=== PATIENT | female | born 1955 | race Caucasian/White ===

== ENCOUNTER → 2017-09-08 09:52 | Outpatient (CLI) | payer MEDICARE, MEDICAID, SELFPAY ==
--- NOTE | 2017-09-08 10:01 | US_ITS ---
US Arterial Ankle Brachial Ind History: This is relatively claudication, peripheral vascular disease, ORDERING PHYSICIAN: Carolyn Granda PATIENT AGE: 62 years TECHNIQUE: Segmental pressures obtained of both right and left leg. These are compared to brachial blood pressure to yield index at each level sampled including summary CONNOR. The data sheets from the procedure are available in PACS FINDINGS Rest study only performed today No prior studies available for comparison. Blood pressures reported are in millimeters mercury. RIGHT LEG CONNOR = .8. RIGHT LEG TBI=.5 Brachial BP: 150 Thigh BP: 132 Calf BP: 126 Ankle PT: 121 Ankle DP : 124 Digit =76 LEFT LEG CONNOR = 1.0 LEFT LEG TBI= .5 Brachial BPD: 140 Thigh BP: 146 Calf BP: 148 Ankle PT:152 Ankle DP: 152 Digit = 81 Pulses and waveforms: Normal waveforms. Normal pulses with the exception of the left dorsalis pedis which was diminished. IMPRESSION: 1. Slightly low right CONNOR suggesting mild reversal vascular disease. 2. Low bilateral TBI suggesting small vessel disease.
== END ==
PROVIDERS: Family Provider Internal Medicine Adolescent Medicine; PCP Internal Medicine Adolescent Medicine; Visit Provider Nurse Practitioner Family
DX: I70.213 Atherosclerosis of native arteries of extremities with intermittent claudication, bilateral legs (principal)
CPT/HCPCS: 93922

== ENCOUNTER → 2018-05-15 09:49 | Outpatient (CLI) | payer MEDICARE, MEDICAID, SELFPAY ==
--- NOTE | 2018-05-15 10:04 | XR_ITS ---
XR chest 2V HISTORY: ITS.REASON: COPD, COUGH, TOBACCO USE, DYSPNEA ORDERING PHYSICIAN: Carolyn Granda PATIENT AGE: 63 years COMPARISON: 11/15/2016 FINDINGS: The cardiomediastinal silhouette and pulmonary vascularity are within normal limits. Changes of COPD and old granulomatous disease. No lobar consolidation or collapse with no significant change. IMPRESSION: COPD, no change with no acute finding
== END ==
PROVIDERS: PCP Internal Medicine Adolescent Medicine; Visit Provider Nurse Practitioner Family
DX: R06.09 Other forms of dyspnea (principal); J44.1 Chronic obstructive pulmonary disease with (acute) exacerbation; R05 Cough; Z72.0 Tobacco use
CPT/HCPCS: 71046

== ENCOUNTER → 2018-06-03 10:17 | Outpatient (CLI) | payer MEDICARE, MEDICAID, SELFPAY ==
--- NOTE | 2018-06-03 10:25 | CT_ITS ---
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 Sagittal, and coronal reformatted images are also generated and reviewed. All CT scans at the facility use one or more dose reduction, viz: automated exposure control, ma/kV adjustment per patient size (including targeted exams where dose is matched to indication, i.e. head), or iterative reconstruction technique. FINDINGS: Mild atheromatous plaque is present within the aortic arch and descending thoracic aorta. No aneurysm or dissection is evident. There are coronary artery calcifications. Working diagnosis is right subclavian artery stenosis. There is a mild degree of artifact and contrast injected into the left upper extremity. Mild atheromatous changes are present in the right brachiocephalic artery but no significant stenosis. The right subclavian and right axillary artery and proximal brachial artery on the right is unremarkable. A faint curvilinear lucency is noted in the brachiocephalic artery on the right however, this is felt to be due to artifact from the overlying contrast in the brachiocephalic vein. Mild stenosis involves the left subclavian artery just proximal to the vertebral origin. The stenosis is less than 50%. The left subclavian and axillary and proximal brachial artery have an unremarkable appearance. The common carotids are unremarkable. Small amount of calcific plaque is present in the left carotid bulb with 25-30% stenosis. There are centrilobular emphysematous changes and COPD changes. IMPRESSION: 1. There are mild atheromatous changes noted as described above in the aorta and great vessels but no significant stenotic lesions evident. 2. COPD/centrilobular emphysema
== END ==
PROVIDERS: PCP Nurse Practitioner Family; Visit Provider Internal Medicine Adolescent Medicine
DX: R09.89 Other specified symptoms and signs involving the circulatory and respiratory systems (principal); G45.8 Other transient cerebral ischemic attacks and related syndromes
CPT/HCPCS: 71275

== ENCOUNTER → 2019-10-20 07:49 | Outpatient (CLI) | payer MEDICARE, OTHER, SELFPAY ==
--- NOTE | 2019-10-20 07:53 | CT_ITS ---
PROCEDURE: CT LUNG SCREENING CLINICAL INDICATION: H/O TOBACCO DEPENDENCE 40 pack year smoking history. COMPARISON: CHW CT CHEST W/ CONTRAST from 12/02/[address] angio chest from 06/03/2018 TECHNIQUE: The exam was performed on a [employer] A/S Light Speed [address] scanner using 2.90 mGy CTDI. A low dose helical CT CHEST was performed on a multi-detector scanner. All CT scans at the facility use one or more dose reduction, viz: automated exposure control, ma/kV adjustment per patient size (including targeted exams where dose is matched to indication, i.e. head), or iterative reconstruction technique. The LDCT was performed in a facility that meets the criteria for the screening program. Data regarding this exam was submitted to ACR which is an approved registry. The order for this exam indicates that it came as a result of a lung cancer screening counseling shard decision-making visit that included all the elements required of such a visit including smoking cessation. The radiologist interpreting this exam meets the CMS criteria for the LDCT lung cancer screening program. The exam is reported using the Lung-RADS classification scale and reported to the ACR registry. NOTE: This study was performed for the specific purposes of lung cancer screening and is not an alternative to diagnostic chest CT. RADIATION DOSE: CTDI vol(CT dose Index-volume) = 2.90mG DLP (Dose Length Product) = 104.20 mGcm Lung Rads Category: FINDINGS: COPD with centrilobular emphysema and scattered areas of scarring. 6 mm noncalcified nodule right upper lobe slightly more prominent. 4 mm fissural nodule in the right middle lobe. OTHER FINDINGS: Coronary artery calcification. Old granulomatous disease. Stable left adrenal nodule IMPRESSION: Lung rads category 3, probably benign. Recommend six-month diagnostic CT follow-up regarding 6 mm nodule right upper lobe slightly more prominent possibly due to technique Dictated by: Quinton Huang MD 10/31/2019 09:03 Electronically signed by Quinton Huang MD in [place] 10/31/2019 09:03
== END ==
PROVIDERS: PCP Nurse Practitioner Family; Visit Provider Nurse Practitioner Family
DX: Z87.891 Personal history of nicotine dependence (principal); Z12.2 Encounter for screening for malignant neoplasm of respiratory organs

== ENCOUNTER → 2020-10-27 09:12 | Outpatient (CLI) | payer MEDICARE, OTHER, SELFPAY ==
[2020-10-27 09:53] LABS: Blood Urea Nitrogen 8 mg/dl (7-17); Estimated Glomerular Filt Rate 83 ml/min (>60); GFR (African American) 101 ML/MIN (>60)
--- NOTE | 2020-10-27 13:46 | CT_ITS ---
PROCEDURE: CT CHEST W CON CLINCAL INDICATION: ABN CT CHEST SCAN Follow-up abnormal screening chest CT COMPARISON: CT CHW CT CHEST W/ CONTRAST from 12/02/[address] LUNG SCREENING from 10/20/2019 TECHNIQUE: IV Contrast: 75ml Isovue 370 Axial images obtained with sagittal and coronal reformats. All CT scans at the facility use one or more dose reduction, viz: automated exposure control, ma/kV adjustment per patient size (including targeted exams where dose is matched to indication, i.e. head), or iterative reconstruction technique. FINDINGS: HEART AND MEDIASTINAL STRUCTURES: No mediastinal or hilar mass or adenopathy. No evidence of aortic aneurysm or dissection. No central pulmonary embolus. Coronary artery calcifications are present. LUNGS AND PLEURAL SPACES: COPD changes no change flat like 6 mm nodule in the right upper lobe. No change small fissural nodule right minor fissure. Calcified granuloma right lower lobe. No new nodules apparent. No effusions or infiltrates. Small area of atelectasis versus fibrosis in the left lower lobe medially slightly more prominent. BONY STRUCTURES: No acute bony abnormalities apparent. UPPER ABDOMEN: Nodularity of the left adrenal gland is unchanged ADDITIONAL FINDINGS: No other significant abnormalities. IMPRESSION: No change in the right upper lobe nodule. There is some minimal atelectatic or fibrotic changes in the left lung base medially which appears slightly more prominent COPD Dictated by: Quinton Huang MD 10/27/2020 15:05 Quinton Huang MD in [place] 10/27/2020 15:05
== END ==
PROVIDERS: PCP Nurse Practitioner Family; Visit Provider Nurse Practitioner Family
DX: R93.89 Abnormal findings on diagnostic imaging of other specified body structures (principal)
CPT/HCPCS: 36415; 71260; 82565; 84520; Q9967

== ENCOUNTER → 2021-01-29 12:48 | Outpatient (CLI) | payer MEDICARE, OTHER, MEDICAID, SELFPAY ==
--- NOTE | 2021-01-29 12:52 | CA_ITS ---
APPROVED REPORT [employer] Press Operator: AMILCAR Laterality: Bilateral Study Quality: Good Indications: DIZZINESS,HLP Doppler Spectral Velocity Analysis dICA (R) 92.90/18.00 cm/s dICA (L) 76.20/15.70 cm/s Hipolito (R) 94.80/12.60 cm/s Hipolito (L) 93.90/20.00 cm/s pICA (R) 79.00/16.60 cm/s pICA (L) 135.30/27.60 cm/s dCCA (R) 85.30/24.70 cm/s dCCA (L) 80.20/16.30 cm/s pCCA (R) 106.60/20.90 cm/s pCCA (L) 79.10/20.50 cm/s Vert (R) 34.30/6.00 cm/s Vert (L) 39.10/9.80 cm/s ICA/CCA 1.10 ICA/CCA 1.70 Findings Duplex evaluation demonstrates stenosis of the right proximal internal carotid artery <20% with PSV <140 cm/sec, EDV <100 cm/sec, and IC/CC Ratio <4.0.Duplex evaluation demonstrates stenosis of the left proximal internal carotid artery <20% with PSV <140 cm/sec, EDV <100 cm/sec, and IC/CC Ratio <4.0. Antegrade flow seen bilateral vertebral arteries. Conclusion Duplex evaluation demonstrates stenosis of the right proximal internal carotid artery <20% with PSV <140 cm/sec, EDV <100 cm/sec, and IC/CC Ratio <4.0.Duplex evaluation demonstrates stenosis of the left proximal internal carotid artery <20% with PSV <140 cm/sec, EDV <100 cm/sec, and IC/CC Ratio <4.0. Antegrade flow seen bilateral vertebral arteries. Electronically signed by : Quinton Huang MD 01/30/2021 09:29:29
== END ==
PROVIDERS: PCP Nurse Practitioner Family; Visit Provider Nurse Practitioner Family
DX: R42 Dizziness and giddiness (principal)
CPT/HCPCS: 93880

== ENCOUNTER → 2021-05-21 11:37 | Outpatient (CLI) | payer MEDICARE, OTHER, MEDICAID, SELFPAY ==
[2021-05-21 12:14] LABS: Basophils # 0.1 K/mm3 (0-0.2); Basophils % 1.1 % (0.1-2.0); Eosinophils # 0.2 K/mm3 (0.0-0.4); Eosinophils % 2.8 % (0.1-12.0); Hematocrit 44.9 % (37.0-47.0); Hemoglobin 15.1 g/dL (12.2-16.2); Lymphocytes # 2.3 K/mm3 (0.7-4.5); Lymphocytes % 34.8 % (10-50); Mean Corpuscular HGB Conc 33.6 g/dL (31.8-35.4); Mean Corpuscular Hemoglobin 31.9 pg (27.0-31.2); Mean Platelet Volume 7.7 fl (7.4-10.4); Monocytes # 0.3 K/mm3 (0.1-1.0); Monocytes % 4.4 % (1.7-9.3); Neutrophils # 3.8 K/mm3 (1.8-7.8); Neutrophils % 56.9 % (37.0-80.0); Platelet Count 301 K/mm3 (142-424); Red Blood Count 4.73 M/mm3 (4.20-5.40); Red Cell Distribution Width 12.9 % (11.5-17.5); White Blood Count 6.7 K/mm3 (4.8-10.8)
[2021-05-21 12:54] LABS: Hemoglobin A1C 6.2 % (4.0-6.0)
[2021-05-21 13:01] LABS: 25-OH Vitamin D, Total 69.6 ng/mL (30-100)
[2021-05-21 13:23] LABS: Alanine Aminotransferase 15 U/L (12-78); Albumin Level 4.7 g/dl (3.5-5.0); Albumin/Globulin Ratio 1.7 (1.1-1.8); Alkaline Phosphatase 80 U/L (38-126); Anion Gap 11.7 mEq/L (5-15); Aspartate Amino Transferase 22 U/L (14-36); Bilirubin,Total 0.5 mg/dl (0.2-1.3); Blood Urea Nitrogen 13 mg/dl (7-17); Carbon Dioxide 28 mmol/L (22.0-30.0); Chloride 106 mmol/L (98-107); Chol/HDL Ratio 2.7 (1-3.5); Cholesterol 168 mg/dl (140-200); Estimated Glomerular Filt Rate 83 ml/min (>60); GFR (African American) 101 ML/MIN (>60); Globulin 2.7 g/dL (1.3-3.2); Glucose 100 mg/dl (74-100); HDL Cholesterol 63 mg/dl (40-60); Potassium 4.7 mmoL/L (3.5-5.1); Sodium 141 mmol/L (136-145); Total Protein,Serum 7.4 g/dl (6.3-8.2); Triglycerides 182 mg/dl (30-150); VLDL Cholesterol 36 mg/dL (0-40)
[2021-05-21 13:34] LABS: Direct LDL Cholesterol 68.04 mg/dL (100-129)
[2021-05-21 14:12] LABS: Vitamin B12 297 pg/mL (239-931)
== END ==
PROVIDERS: PCP Nurse Practitioner Family; Visit Provider Nurse Practitioner Family
DX: I10 Essential (primary) hypertension (principal); E78.5 Hyperlipidemia, unspecified; E53.8 Deficiency of other specified B group vitamins; E55.9 Vitamin D deficiency, unspecified; R73.09 Other abnormal glucose
CPT/HCPCS: 36415; 80053; 80061; 82306; 82607; 83036; 85025

== ENCOUNTER → 2022-01-21 08:44 | Outpatient (CLI) | payer MEDICARE, OTHER, SELFPAY ==
[2022-01-21 10:15] LABS: Basophils # 0.1 K/mm3 (0-0.2); Eosinophils # 0.2 K/mm3 (0.0-0.4); Eosinophils % 2.5 % (0.1-12.0); Hemoglobin 15.4 g/dL (12.2-16.2); Lymphocytes # 1.8 K/mm3 (0.7-4.5); Lymphocytes % 24.8 % (10-50); Mean Corpuscular HGB Conc 32.1 g/dL (31.8-35.4); Mean Corpuscular Hemoglobin 30.7 pg (27.0-31.2); Mean Corpuscular Volume 95.5 fl (81-99); Mean Platelet Volume 7.7 fl (7.4-10.4); Monocytes # 0.4 K/mm3 (0.1-1.0); Neutrophils # 4.8 K/mm3 (1.8-7.8); Neutrophils % 65.8 % (37.0-80.0); Platelet Count 289 K/mm3 (142-424); Red Blood Count 5.03 M/mm3 (4.20-5.40); Red Cell Distribution Width 13.2 % (11.5-17.5); White Blood Count 7.3 K/mm3 (4.8-10.8)
[2022-01-21 11:24] LABS: Alanine Aminotransferase 14 U/L (12-78); Albumin Level 4.5 g/dl (3.5-5.0); Albumin/Globulin Ratio 1.7 (1.1-1.8); Alkaline Phosphatase 102 U/L (38-126); Anion Gap 13.4 mEq/L (5-15); Aspartate Amino Transferase 19 U/L (14-36); Bilirubin,Total 0.3 mg/dl (0.2-1.3); Blood Urea Nitrogen 14 mg/dl (7-17); Calcium 10.1 mg/dl (8.4-10.2); Carbon Dioxide 28 mmol/L (22.0-30.0); Chloride 105 mmol/L (98-107); Chol/HDL Ratio 2.5 (1-3.5); Cholesterol 163 mg/dl (140-200); Estimated Glomerular Filt Rate 99 ml/min (>60); GFR (African American) 120 ML/MIN (>60); Globulin 2.7 g/dL (1.3-3.2); Glucose 120 mg/dl (74-100); HDL Cholesterol 64 mg/dl (40-60); Potassium 4.4 mmoL/L (3.5-5.1); Sodium 142 mmol/L (136-145); Total Protein,Serum 7.2 g/dl (6.3-8.2); Triglycerides 138 mg/dl (30-150); VLDL Cholesterol 28 mg/dL (0-40)
[2022-01-21 11:35] LABS: Direct LDL Cholesterol 64.46 mg/dL (100-129)
== END ==
PROVIDERS: PCP Nurse Practitioner Family; Visit Provider Nurse Practitioner Family
DX: I10 Essential (primary) hypertension (principal); E78.5 Hyperlipidemia, unspecified; M53.9 Dorsopathy, unspecified
CPT/HCPCS: 36415; 80053; 80061; 85025

== ENCOUNTER → 2022-08-19 09:59 | Outpatient (POV) | payer MEDICARE, MEDICAID, SELFPAY ==
[2022-08-19 10:35] VITALS: BP 162/60; PULSE 79; RESP 18; O2SAT 98; BMI 24.6
--- NOTE | 2022-08-19 12:03 | EXP.PAIN.OV ---
HPI Data of Consult Patient: new to practice Consult date: 08/19/22 Requesting Physician: Nayla Saeed APRN Primary Care Provider: Carolyn Granda APRN Consult Narrative Reason for consult: Low back pain History of present illness: Ms. Almodovar is a 67 year old female who presents today as a new patient. She is a referral from Carolyn Granda's office. Today she rates her pain at an 8 out of 10. Patient states her pain is all in her low back and has been going on for years. She does describe this as a aching sensation that is worse with increased activity. Patient cannot tolerate activities such as bending, lifting or twisting movements due to her worsening pain. Patient does state the pain interferes with her ability to perform activities of daily living such as cooking and cleaning. Patient has tried umvo-qfo-nzqqmdv medicine such as Tylenol and ibuprofen with minimal improvement. Patient has also tried heat and iuaa-ien-tbhrwsm creams with minimal relief. Patient is currently managed with gabapentin 400 mg 3 times a day and hydrocodone/ibuprofen 7.5 mg / 200 mg 3 times a day from her primary care doctor. Patient denies any side effects from this medication. She states it does help some of her symptoms. 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 Patient denies any history of surgery. She does state that she had an injection years ago that did provide significant relief from what she can remember. She has not had any updated imaging. Patient has had physical therapy that caused worsening of her pain symptoms. She does continue to do at home exercising and stretching as well as she can based off of her pain symptoms. She does state occasionally with certain movements she will have random shooting pains into her left leg however she states this only rarely occurs. Her Akash is [phone]. Its been reviewed and appropriate. CC: Nayla Saeed APRN [facility] Disclaimer: The information contained in this section may have been updated after the patient was seen, as this information can be updated by other users. Medical History (Updated 08/19/22 @ 12:07 by Nayla Saeed APRN) Abdominal hernia Bladder cancer Carotid artery stenosis COPD (chronic obstructive pulmonary disease) Depression Diabetes GERD (gastroesophageal reflux disease) HLD (hyperlipidemia) TIA (transient ischemic attack) Surgical History (Updated 08/19/22 @ 10:10 by Rianna Henderson RN) H/O tubal ligation Family History (Updated 08/19/22 @ 10:09 by Rianna Henderson RN) Other Cirrhosis Diabetes Hyperlipidemia Hypertension Pancreatic cancer Social History (Updated 08/19/22 @ 10:12 by Rianna Henderson, JANAE) Smoking Status: Current every day smoker alcohol intake: never current occupational status: retired Travel in the last 8 weeks: None Review of Systems Review of Systems Review of systems:: pertinent systems reviewed and negative unless documented below Review of systems (narrative): Review of Systems: General: No recent weight changes, no fever, no sleep disturbances Respiratory: No cough, no shortness of air, no recurring pulmonary infections Cardiovascular/peripheral vascular: No chest pain, no palpitations, no edema, no shortness of breath Gastrointestinal: No new onset incontinence, normal bowel movements reported Genitourinary: No new onset incontinence Musculoskeletal: Low back pain Psychiatric: [Normal mood/affect] Neurological: [Denies weakness in extremities], [denies balance issues] Meds Home Medications and Allergies Home Medications Medication Instructions Recorded Confirmed Type amlodipine 10 mg tablet 10 mg PO DAILY BLOOD PRESSURE 08/19/22 08/19/22 History budesonide 160 mcg-glycopyr 9 2 inh inhalation BID Breathing 08/19/22 08/19/22 History mcg-formot 4.8 mcg/actuation HFA problems inh
== END ==
PROVIDERS: PCP Nurse Practitioner Family; Visit Provider Nurse Practitioner Family
DX: M51.36 Other intervertebral disc degeneration, lumbar region (principal); M47.816 Spondylosis without myelopathy or radiculopathy, lumbar region
CPT/HCPCS: 99202; G0463

== ENCOUNTER → 2022-08-19 10:59 | Outpatient (CLI) | payer MEDICARE, MEDICAID, SELFPAY ==
[2022-08-19 11:57] LABS: Basophils # 0.1 K/mm3 (0-0.2); Basophils % 0.6 % (0.1-2.0); Eosinophils # 0.2 K/mm3 (0.0-0.4); Eosinophils % 2.8 % (0.1-12.0); Hemoglobin 15.1 g/dL (12.2-16.2); Lymphocytes # 2.3 K/mm3 (0.7-4.5); Lymphocytes % 30.8 % (10-50); Mean Corpuscular HGB Conc 32.7 g/dL (31.8-35.4); Mean Corpuscular Hemoglobin 31.1 pg (27.0-31.2); Mean Corpuscular Volume 94.9 fl (81-99); Mean Platelet Volume 7.3 fl (7.4-10.4); Monocytes # 0.4 K/mm3 (0.1-1.0); Monocytes % 5.6 % (1.7-9.3); Neutrophils # 4.5 K/mm3 (1.8-7.8); Neutrophils % 60.2 % (37.0-80.0); Platelet Count 331 K/mm3 (142-424); Red Blood Count 4.85 M/mm3 (4.20-5.40); Red Cell Distribution Width 12.8 % (11.5-17.5); White Blood Count 7.5 K/mm3 (4.8-10.8)
[2022-08-19 12:22] LABS: Chloride 106 mmol/L (98-107); Potassium 4.8 mmoL/L (3.5-5.1); Sodium 140 mmol/L (136-145)
[2022-08-19 12:24] LABS: Alanine Aminotransferase 13 U/L (12-78); Alkaline Phosphatase 88 U/L (38-126); Aspartate Amino Transferase 18 U/L (14-36); Bilirubin,Total 0.4 mg/dl (0.2-1.3); Blood Urea Nitrogen 10 mg/dl (7-17); Estimated Glomerular Filt Rate 71 ml/min (>60); GFR (African American) 86 ML/MIN (>60)
[2022-08-19 12:25] LABS: Albumin Level 4.6 g/dl (3.5-5.0); Albumin/Globulin Ratio 1.8 (1.1-1.8); Anion Gap 11.8 mEq/L (5-15); Calcium 10.3 mg/dl (8.4-10.2); Carbon Dioxide 27 mmol/L (22.0-30.0); Chol/HDL Ratio 2.4 (1-3.5); Cholesterol 159 mg/dl (140-200); Globulin 2.6 g/dL (1.3-3.2); Glucose 109 mg/dl (74-100); HDL Cholesterol 65 mg/dl (40-60); Total Protein,Serum 7.2 g/dl (6.3-8.2); Triglycerides 224 mg/dl (30-150); VLDL Cholesterol 45 mg/dL (0-40)
[2022-08-19 12:41] LABS: 25-OH Vitamin D, Total 52.6 ng/mL (30-100)
[2022-08-19 12:53] LABS: Hemoglobin A1C 6.1 % (4.0-6.0)
[2022-08-19 13:13] LABS: Vitamin B12 342 pg/mL (239-931)
== END ==
PROVIDERS: PCP Nurse Practitioner Family; Visit Provider Nurse Practitioner Family
DX: E11.9 Type 2 diabetes mellitus without complications (principal); E78.5 Hyperlipidemia, unspecified; E55.9 Vitamin D deficiency, unspecified; E53.8 Deficiency of other specified B group vitamins
CPT/HCPCS: 36415; 80053; 80061; 82306; 82607; 83036; 85025; 99202; G0463

== ENCOUNTER 2022-08-27 09:48 | Day surgery (SDC) | payer MEDICARE, OTHER, SELFPAY ==
[2022-08-27 10:12] VITALS: BP 170/75; PULSE 93; RESP 18; TEMP 36.5; O2SAT 95; BMI 23.8
[2022-08-27 10:24] VITALS: BP 160/80; PULSE 88; RESP 18; O2SAT 97
[2022-08-27 10:26] VITALS: BP 160/80; PULSE 88; RESP 18; O2SAT 97
[2022-08-27 10:30] VITALS: BP 160/74; PULSE 84; RESP 18; O2SAT 95
--- NOTE | 2022-08-27 10:31 | P.PCN_ITS ---
Procedure Date: 08/27/22 Time: 10:00 Anesthesiologist:: Lucho Kuhn CRNA Complications:: None Pre-procedure Diagnosis:: Degenerative disc disease lumbar spine multilevels. Lumbar radiculopathy. Lumbar spondylosis. Multilevel lumbar facet arthropathy Post-procedure Diagnosis:: Same Indications for Procedure:: Patient is a very pleasant 67-year-old female comes our clinic today for lumbar medial branch block L4-5, L5-S1 bilaterally. Patient complains of low back pain when standing and or sitting for any length of time. She rates her pain 7/10. Patient does have some radicular symptoms into the bilateral hips. Procedure Details:: Informed consent was obtained and the risk and benefits of the procedure was explained to the patient. Patient was taken to the procedure room where noninvasive monitors were placed, including noninvasive blood pressure cuff as well as pulse oximeter. The area over the lumbar spine was cleansed using chlorhexidine as a cleansing solution. I anesthetized the skin and subcutaneous tissues with 1% Lidocaine. I placed 22-gauge spinal needles into the facet joint/ medial branches of L4-L5, and L5-S1] bilaterally. Needle placement was confirmed with fluoroscopy. After confirmation of needle placement, each site was injected with 1 mL of 1% lidocaine and 0.25 % Marcaine and 10 mg of Depo- Medrol. A total of 80 mg of depo medrol was used for bilateral medial branch blocks of L4-L5, and L5-S1] bilaterally. Patient tolerated the procedure without difficulty. There were no complications. Plan and Disposition:: Patient was discharged without incident.
== END 2022-08-27 10:30 | disposition home or self-care (01) ==
PROVIDERS: PCP Nurse Practitioner Family; Visit Provider Nurse Anesthetist, Certified Registered
DX: M51.16 Intervertebral disc disorders with radiculopathy, lumbar region (principal); M47.896 Other spondylosis, lumbar region
CPT/HCPCS: 64493; 64494; J1040

== ENCOUNTER → 2022-09-11 10:45 | Outpatient (POV) | payer MEDICARE, OTHER, SELFPAY ==
--- NOTE | 2022-09-11 11:11 | A.OFFVIS_ITS ---
[facility] Pain Management SOAP Note Subjective:: Patient is a pleasant 67-year-old female who presents today for follow-up of lumbar medial branch block L4-L5, L5-S1 bilaterally on 08/27/2022. We are currently treating the patient for degenerative disc disease of lumbar spine with lumbar radiculopathy symptoms, lumbar facet arthropathy, lumbar spondylosis. Today she rates her pain a 1 out of 10. She states she has had at least 70% improvement following this injection and feels like it is still continuing to provide additional relief. She states she has been able to increase her activity with decreased pain symptoms. At her last visit she was also prescribed compounding cream that she states does help significantly. She does state that Dr. Olmstead's office did recently prescribe her tramadol 50 mg 3 times daily due to having issues with refilling her [place]. Her Akash is [phone]. Its been reviewed and appropriate. Review of Systems: General: No recent weight changes, no fever, no sleep disturbances Respiratory: No cough, no shortness of air, no recurring pulmonary infections Cardiovascular/peripheral vascular: No chest pain, no palpitations, no edema, no shortness of breath Gastrointestinal: No new onset incontinence, normal bowel movements reported Genitourinary: No new onset incontinence Musculoskeletal: Low back pain Psychiatric: [Normal mood/affect] Neurological: [Denies weakness in extremities], [denies balance issues] Objective:: Physical Exam: General: Alert and oriented x3, no acute distress, pleasant and cooperative Lungs: Respirations even and unlabored, symmetrical chest expansion Eyes: PERRL Musculoskeletal: Flexion and extension of lumbar [spine] somewhat guarded secondary to pain, [antalgic gait noted] Neurological: Speech clear, no gross sensory deficit Assessment:: Degenerative disc disease of lumbar spine with lumbar radiculopathy symptoms, lumbar facet arthropathy, lumbar spondylosis Plan:: Patient has had significant improvement of her pain symptoms following her lumbar medial block and does not require any additional injective therapy at this time. Patient will return to clinic in 1 month for reevaluation of symptoms and plan of care. Patient has been instructed to contact the clinic with any concerns before the next appointment. Dr. Jang has reviewed this note and agrees with this plan of care. This note was dictated using voice recognition software and make contain errors or omissions. [facility] Disclaimer: The information contained in this section may have been updated after the patient was seen, as this information can be updated by other users. Medical History Abdominal hernia Bladder cancer Carotid artery stenosis COPD (chronic obstructive pulmonary disease) Depression Diabetes GERD (gastroesophageal reflux disease) HLD (hyperlipidemia) TIA (transient ischemic attack) Surgical History H/O tubal ligation Family History Other Cirrhosis Diabetes Hyperlipidemia Hypertension Pancreatic cancer Social History Smoking Status: Current every day smoker alcohol intake: never current occupational status: retired Travel in the last 8 weeks: None
[2022-09-11 11:39] VITALS: BP 145/67; PULSE 82; RESP 18; O2SAT 97; BMI 23.8
== END ==
PROVIDERS: PCP Nurse Practitioner Family; Visit Provider Nurse Practitioner Family
DX: M51.16 Intervertebral disc disorders with radiculopathy, lumbar region (principal); M47.26 Other spondylosis with radiculopathy, lumbar region
CPT/HCPCS: 99212; G0463

== ENCOUNTER → 2022-11-04 11:41 | Outpatient (POV) | payer MEDICARE, OTHER, SELFPAY ==
[2022-11-04 11:49] VITALS: BP 142/69; PULSE 72; RESP 18; O2SAT 98; BMI 23.8
--- NOTE | 2022-11-04 11:57 | EXP.PAIN.SOA ---
[facility] Pain Management SOAP Note Subjective:: Patient is a pleasant 67-year-old female who presents today for follow-up. We are currently treating the patient for degenerative disc disease of lumbar spine with lumbar radiculopathy symptoms, lumbar facet arthropathy, lumbar spondylosis. Today she rates her pain a 0 out of 10. Patient denies any new trauma or injury. She denies any change to location or type of pain she experiences. Patient previously had a lumbar medial branch block bilaterally at L4-L5 and L5-S1 at the beginning of August that did provide at least 70% improvement and still continues to help additionally. Patient is currently managed with compounding cream from our office and tramadol 50 mg 3 times a day and gabapentin 400 mg 3 times a day from Dr. Joseph's office. She denies any side effects from these medications. Her Akash is [phone]. Its been reviewed and appropriate. Review of Systems: General: No recent weight changes, no fever, no sleep disturbances Respiratory: No cough, no shortness of air, no recurring pulmonary infections Cardiovascular/peripheral vascular: No chest pain, no palpitations, no edema, no shortness of breath Gastrointestinal: No new onset incontinence, normal bowel movements reported Genitourinary: No new onset incontinence Musculoskeletal: Low back pain Psychiatric: [Normal mood/affect] Neurological: [Denies weakness in extremities], [denies balance issues] Objective:: Physical Exam: General: Alert and oriented x3, no acute distress, pleasant and cooperative Lungs: Respirations even and unlabored, symmetrical chest expansion Eyes: PERRL Musculoskeletal: Flexion and extension of lumbar [spine] somewhat guarded secondary to pain, [antalgic gait noted] Neurological: Speech clear, no gross sensory deficit Assessment:: Degenerative disc disease of lumbar spine with lumbar radiculopathy symptoms, low back pain, lumbar facet arthropathy, lumbar spondylosis Plan:: Patient continues to get significant relief following her medial branch block and does not require any additional injective therapy at this time. Patient will return to clinic in 3 months for reevaluation of symptoms and plan of care. Patient has been instructed to contact the clinic with any concerns before the next appointment. Dr. Jang has reviewed this note and agrees with this plan of care. This note was dictated using voice recognition software and make contain errors or omissions. [facility] Disclaimer: The information contained in this section may have been updated after the patient was seen, as this information can be updated by other users. Medical History Abdominal hernia Bladder cancer Carotid artery stenosis COPD (chronic obstructive pulmonary disease) Depression Diabetes GERD (gastroesophageal reflux disease) HLD (hyperlipidemia) TIA (transient ischemic attack) Surgical History H/O tubal ligation Family History Other Cirrhosis Diabetes Hyperlipidemia Hypertension Pancreatic cancer Social History Smoking Status: Current every day smoker alcohol intake: never current occupational status: retired Travel in the last 8 weeks: None
== END ==
PROVIDERS: PCP Nurse Practitioner Family; Visit Provider Nurse Practitioner Family
DX: M51.16 Intervertebral disc disorders with radiculopathy, lumbar region (principal); M47.26 Other spondylosis with radiculopathy, lumbar region
CPT/HCPCS: 99212; G0463

== ENCOUNTER 2022-12-09 10:39 | Emergency (ER) | payer MEDICARE, OTHER, SELFPAY ==
[2022-12-09 10:39] VITALS: BP 168/102; PULSE 98; RESP 18; TEMP 37.1; O2SAT 96; BMI 22.3
[2022-12-09 10:40] VITALS: BMI 22.3
--- NOTE | 2022-12-09 10:50 | CT_ITS ---
FINAL REPORT TECHNIQUE: Axial CT images were performed through the head. Coronal reformatted images were submitted. This study was performed with techniques to keep radiation doses as low as reasonably achievable (ALARA). Individualized dose reduction techniques using automated exposure control or adjustment of mA and/or kV according to the patient's size were employed. CLINICAL HISTORY: off balance, discoordination, concern posterior st FINDINGS: The ventricles are normal in size. There is no evidence of hemorrhage. There is no mass or edema identified. There is no abnormal extra-axial fluid seen. The sinuses are well aerated. IMPRESSION: No acute intracranial process. Reviewed, Interpreted and Dictated by Angel Rivas MD Transcribed by Leidy Boudreaux Authenticated and [facility]
--- NOTE | 2022-12-09 10:50 | CT_ITS ---
FINAL REPORT TECHNIQUE: NASCET technique utilized for stenosis evaluation. CLINICAL HISTORY: off balance, discoordination, concern posterior st FINDINGS: There is no large vessel occlusion. Calcification is seen in the distal left vertebral artery which is the dominant posterior circulation vessel. There is mild stenosis RIGHT CAROTID: No significant stenosis is seen of the cervical common or internal carotid artery. LEFT CAROTID: Moderate vascular calcifications in the carotid bulb. No significant stenosis seen of the cervical common or internal carotid artery. IMPRESSION: Moderate calcification of the left carotid bulb and distal left vertebral artery without significant stenosis. Reviewed, Interpreted and Dictated by Angel Rivas MD Transcribed by Leidy Boudreaux Authenticated and [facility]
--- NOTE | 2022-12-09 10:50 | XR_ITS ---
FINAL REPORT TECHNIQUE: Single view chest CLINICAL HISTORY: weakness, AMS FINDINGS: A single view of the chest was obtained. The heart and mediastinum are within normal limits. The lungs are clear. There is no pneumothorax. Osseous structures are unremarkable. IMPRESSION: No acute cardiopulmonary process. Reviewed, Interpreted and Dictated by Angel Rivas MD Transcribed by Leidy Boudreaux Authenticated and [facility]
--- NOTE | 2022-12-09 10:50 | CT_ITS ---
FINAL REPORT TECHNIQUE: thin section axial CT with and without IV contrast supplemented with multiplanar 3-D reconstruction of the head. This study was performed with techniques to keep radiation doses as low as reasonably achievable, (ALARA)individualized dose reduction techniques using automated exposure control or adjustment of mA and/or kV according to the patient's size were employed. CLINICAL HISTORY: off balance, discoordination, concern posterior st FINDINGS: HEAD CT: The ventricles are normal in size. There is no evidence of hemorrhage. No masses are identified. No extra-axial fluid is seen. The sinuses are normal. CTA: The cranial circulation is unremarkable. There is no significant stenosis, aneurysm or occlusion. IMPRESSION: No acute process. Reviewed, Interpreted and Dictated by Angel Rivas MD Transcribed by Leidy Boudreaux Authenticated and [facility]
[2022-12-09 10:57] LABS: Basophils % 0.6 % (0.1-2.0); Eosinophils % 0.7 % (0.1-12.0); Hematocrit 46.6 % (37.0-47.0); Hemoglobin 15.2 g/dL (12.2-16.2); Lymphocytes % 20.5 % (10-50); Mean Corpuscular HGB Conc 32.5 g/dL (31.8-35.4); Mean Corpuscular Hemoglobin 31.5 pg (27.0-31.2); Mean Corpuscular Volume 96.9 fl (81-99); Mean Platelet Volume 8.1 fl (7.4-10.4); Monocytes # 0.2 K/mm3 (0.1-1.0); Neutrophils # 3.5 K/mm3 (1.8-7.8); Neutrophils % 73.2 % (37.0-80.0); Platelet Count 213 K/mm3 (142-424); Red Blood Count 4.81 M/mm3 (4.20-5.40); Red Cell Distribution Width 13.5 % (11.5-17.5); White Blood Count 4.7 K/mm3 (4.8-10.8)
[2022-12-09 11:00] VITALS: BP 144/68; PULSE 77; RESP 18; O2SAT 92
[2022-12-09 11:00] LABS: Chloride 105 mmol/L (98-107); Potassium 3.4 mmoL/L (3.5-5.1); Sodium 142 mmol/L (136-145)
[2022-12-09 11:03] LABS: Alanine Aminotransferase 22 U/L (12-78); Albumin Level 4.2 g/dl (3.5-5.0); Albumin/Globulin Ratio 1.3 (1.1-1.8); Alkaline Phosphatase 81 U/L (38-126); Anion Gap 15.4 mEq/L (5-15); Aspartate Amino Transferase 30 U/L (14-36); Bilirubin,Total 0.3 mg/dl (0.2-1.3); Blood Urea Nitrogen 6 mg/dl (7-17); Calcium 9.5 mg/dl (8.4-10.2); Carbon Dioxide 25 mmol/L (22.0-30.0); Creatinine Clearance Estimated 49 mL/min (50-200); Estimated Glomerular Filt Rate 71 ml/min (>60); GFR (African American) 86 ML/MIN (>60); Globulin 3.2 g/dL (1.3-3.2); Glucose 128 mg/dl (74-100); Total Protein,Serum 7.4 g/dl (6.3-8.2)
--- NOTE | 2022-12-09 11:03 | ECG_ITS ---
APPROVED REPORT Exam: Resting ECG HR:75 bpm ECG Measurements Heart Rate 75 AXES LA 148 P 80 QRSd 83 QRS 73 QT 407 T 83 QTc 437 Conclusion SINUS RHYTHM SEPTAL MYOCARDIAL INFARCTION , PROBABLY OLD [40+ ms Q WAVE IN V1/V2] ABNORMAL ECG UNCONFIRMED REPORT Electronically signed by : Alejo Joseph MD 12/10/2022 19:45:01
[2022-12-09 11:04] LABS: Magnesium 1.4 mg/dl (1.6-2.3)
[2022-12-09 11:12] LABS: Influenza A, PCR Not Detected (NotDetected); Influenza B, PCR Not Detected (NotDetected)
--- NOTE | 2022-12-09 11:30 | PC.NURSE ---
pt return from Ct
[2022-12-09 11:34] LABS: Coronavirus 19, PCR Detected (NotDetected)
[2022-12-09 12:00] VITALS: BP 156/67; PULSE 72; RESP 20; O2SAT 92
--- NOTE | 2022-12-09 12:20 | HMH.EDGENADL ---
Discharge Plan Disposition Patient Disposition: Home, Self-Care Prescriptions Prescriptions: No Action hydrocodone-ibuprofen 7.5-200 mg tablet 1 tab PO TID Patient Comments: TAKE ONE TABLET BY MOUTH THREE TIMES DAILY --TAKE WITH FOOD-- MAY CAUSE DROWSINESS gabapentin 400 mg capsule 400 mg PO TID Patient Comments: TAKE ONE CAPSULE BY MOUTH THREE TIMES DAILY MAY CAUSE DROWSINESS amlodipine 10 mg tablet 10 mg PO DAILY Patient Comments: TAKE ONE TABLET BY MOUTH EVERY DAY pantoprazole 40 mg tablet,delayed release (DR/EC) 40 mg PO DAILY Patient Comments: TAKE ONE TABLET BY MOUTH EVERY DAY ergocalciferol (vitamin D2) 1,250 mcg (50,000 unit) capsule 1,250 mcg PO DAILY Patient Comments: TAKE ONE CAPSULE BY MOUTH ONCE A WEEK hydroxyzine pamoate 25 mg capsule 25 mg PO Q8HP PRN (Reason: Anxiety) Patient Comments: TAKE ONE CAPSULE BY MOUTH EVERY 8 HOURS NEEDED FOR ANXIETY/insomnia MAY CAUSE DROWSINESS rosuvastatin 10 mg tablet 10 mg PO DAILY Patient Comments: TAKE ONE TABLET BY MOUTH EVERY DAY budesonide-formoterol [Symbicort] 160-4.5 mcg/actuation HFA aerosol inhaler 2 inh INHALATION BID Patient Comments: INHALE TWO PUFFS BY MOUTH TWICE DAILY Breztri Aerosphere 160-9-4.8 mcg/actuation HFA aerosol inhaler 2 inh INHALATION BID Patient Comments: INHALE 2 PUFFS BY MOUTH TWICE DAILY Referrals Follow up/Referrals: Alejo Joseph MD [Primary Care Provider] - See instructions Activity Restrictions/Add. Instructions Additional Instructions/Restrictions: You were evaluated in the emergency department today. Please follow-up closely with your primary care provider over the next 3 days for reassessment. Orally hydrate at home is much as possible. Return to the emergency department for any new or worsening symptoms. Clinical Impressions Clinical Impression: COVID-19, Hypomagnesemia, Hypokalemia Instructions Patient Instructions: DI for Hypokalemia, DI for Hypomagnesemia, DI for COVID-19 (Suspected or Confirmed ) Discharge ED Provider: Nayla Shin General Adult HPI General Chief complaint: Weakness Stated complaint: confusion, off balance Time Seen by Provider: 12/09/22 10:50 Mode of Arrival: Family Vehicle Source of Information: Patient and Relative Limitations: No Limitations Description of Symptoms (Recalled from ER Triage Doc. by RN): Pt c/o weakness, nausea, sweating, and shakiness with amubulation since Friday am. Denies any fever or chills. Denies any cough, SOA, or dyspnea. Denies any urinary complaints. States this weekend her R cheek felt a little funny like when you get a sinus infection . History of Present Illness HPI narrative: This patient is a 67-year-old female with a history of chronic low back pain and degenerative disc disease, hypertension, and hyperlipidemia presenting to the emergency department for evaluation with concern for generalized weakness, nausea, and episodes of diaphoresis and shakiness since Friday morning. She denies any fevers, chest pain, shortness of breath, cough, abdominal pain, nausea, vomiting, changes in bowel movements, dysuria, polyuria, rashes, or swelling. She states that she has just not felt right when walking. She denies any sensation of the room spinning, vision changes, unilateral weakness, numbness, tingling, or other concerns. She states that she told my nurse practitioner at her PCPs office that she was having issues with walking because of weakness, and they told her to come to the emergency department with concern for stroke. Related Data Home Medications Medication Instructions Recorded Confirmed amlodipine 10 mg tablet 10 mg PO DAILY BLOOD PRESSURE 08/19/22 11/04/22 budesonide 160 mcg-glycopyr 9 2 inh inhalation BID Breathing 08/19/22 11/04/22 mcg-formot 4.8 mcg/actuation HFA problems inhaler (Breztri Aerosphere) budesonide-formoterol HFA 160 2 inh
[2022-12-09 12:30] VITALS: BP 170/74; PULSE 73; RESP 20; O2SAT 92
[2022-12-09 12:54] LABS: Microscopic, Urine URINE MICROSCOPIC (MICROSCOPIC)
[2022-12-09 12:55] LABS: Appearance,Urine CLEAR (Clear); Bilirubin,Urine Negative (Negative); Blood, Urine Negative (Negative); Color,Urine YELLOW (Yellow); Glucose,Urine (UA) Negative (Negative); Ketones,Urine Negative (Negative); Leukocyte Esterase,Urine Negative (Negative); Nitrate,Urine Negative (Negative); Protein,Urine Negative (Negative); Urobilinogen,Urine 0.2 EU/dl (0.2)
[2022-12-09 13:45] VITALS: BP 170/74; PULSE 74; RESP 18; TEMP 37.1; O2SAT 96
== END 2022-12-09 13:45 | disposition home or self-care (01) ==
PROVIDERS: Emergency Provider Emergency Medicine; PCP Internal Medicine Adolescent Medicine
DX: U07.1 COVID-19 (principal); E83.42 Hypomagnesemia; E87.6 Hypokalemia; I10 Essential (primary) hypertension; E78.5 Hyperlipidemia, unspecified; J44.9 Chronic obstructive pulmonary disease, unspecified; K21.9 Gastro-esophageal reflux disease without esophagitis; I65.29 Occlusion and stenosis of unspecified carotid artery; E11.9 Type 2 diabetes mellitus without complications; F32.A Depression, unspecified; F17.200 Nicotine dependence, unspecified, uncomplicated
CPT/HCPCS: 70450; 70496; 70498; 71045; 80053; 81001; 83735; 85025; 87636; 93005; 96365; 99285; J3475; Q9967

== ENCOUNTER 2022-12-14 13:21 | Emergency (ER) | payer MEDICARE, OTHER, SELFPAY ==
[2022-12-14 13:22] VITALS: BP 170/83; PULSE 75; RESP 19; TEMP 36.8; O2SAT 88; BMI 22.3
[2022-12-14 13:31] VITALS: PULSE 77; O2SAT 96
--- NOTE | 2022-12-14 13:43 | PC.NURSE ---
updated family on POC
[2022-12-14 13:53] LABS: Chloride 108 mmol/L (98-107); Sodium 142 mmol/L (136-145)
--- NOTE | 2022-12-14 13:54 | HMH.EDGENADL ---
Discharge Plan Disposition Patient Disposition: Home, Self-Care Prescriptions Prescriptions: New promethazine 25 mg tablet 25 mg PO TID PRN (Reason: nausea and vomiting if zofran is not working) 5 Days Qty: 20 0RF ondansetron 4 mg tablet,disintegrating 4 mg PO Q6H PRN (Reason: nausea and vomiting) 5 Days Qty: 20 0RF No Action hydrocodone-ibuprofen 7.5-200 mg tablet 1 tab PO TID Patient Comments: TAKE ONE TABLET BY MOUTH THREE TIMES DAILY --TAKE WITH FOOD-- MAY CAUSE DROWSINESS gabapentin 400 mg capsule 400 mg PO TID Patient Comments: TAKE ONE CAPSULE BY MOUTH THREE TIMES DAILY MAY CAUSE DROWSINESS amlodipine 10 mg tablet 10 mg PO DAILY Patient Comments: TAKE ONE TABLET BY MOUTH EVERY DAY pantoprazole 40 mg tablet,delayed release (DR/EC) 40 mg PO DAILY Patient Comments: TAKE ONE TABLET BY MOUTH EVERY DAY ergocalciferol (vitamin D2) 1,250 mcg (50,000 unit) capsule 1,250 mcg PO DAILY Patient Comments: TAKE ONE CAPSULE BY MOUTH ONCE A WEEK hydroxyzine pamoate 25 mg capsule 25 mg PO Q8HP PRN (Reason: Anxiety) Patient Comments: TAKE ONE CAPSULE BY MOUTH EVERY 8 HOURS NEEDED FOR ANXIETY/insomnia MAY CAUSE DROWSINESS rosuvastatin 10 mg tablet 10 mg PO DAILY Patient Comments: TAKE ONE TABLET BY MOUTH EVERY DAY budesonide-formoterol [Symbicort] 160-4.5 mcg/actuation HFA aerosol inhaler 2 inh INHALATION BID Patient Comments: INHALE TWO PUFFS BY MOUTH TWICE DAILY Breztri Aerosphere 160-9-4.8 mcg/actuation HFA aerosol inhaler 2 inh INHALATION BID Patient Comments: INHALE 2 PUFFS BY MOUTH TWICE DAILY Referrals Follow up/Referrals: Alejo Joseph MD [Primary Care Provider] - See instructions Activity Restrictions/Add. Instructions Additional Instructions/Restrictions: Please take your nausea medicines as discussed and return to the emergency department inability to tolerate anything by mouth. Return with any worsening symptoms. Of note your potassium was 3.0 which is low and you can have this followed up with your primary care doctor within 1 to 2 weeks. Clinical Impressions Clinical Impression: Nausea & vomiting, COVID-19, Hypokalemia Instructions Patient Instructions: DI for Diarrhea and Traveler's Diarrhea -- Adult, DI for Diarrhea and Traveler's Diarrhea -- Child, DI for Nausea -- Adult, DI for Nausea -- Child Discharge ED Provider: Mary Gregorio General Adult HPI General Chief complaint: Nausea/Vomiting/Diarrhea Stated complaint: symptoms from covid dx 12/09 Time Seen by Provider: 12/14/22 13:27 Mode of Arrival: EMS Source of Information: Patient, EMS and Medical Record Limitations: No Limitations Description of Symptoms (Recalled from ER Triage Doc. by RN): Pt c/o persistant nausea & vomiting for 3-5 day. States she was diadnosed with COVID on Friday here in the ER. She has a hx of COPD and wears home O2 PRN. She denies any increased SOA. Her friend gave her a phenergan tablet that she reports hasn't done nothing . Family concerned she is dehydrated. History of Present Illness HPI narrative: Patient is a 67-year-old female who was diagnosed with COVID 1 week ago and has had some persistent nausea and vomiting and food aversions secondary to loss of taste. States she is lost several pounds and this is only reason she came to the emergency department today. She has had some nausea and vomiting and has had some headaches and fevers and chills but states that fevers and chills and any pain have gone away. She took her friend's Phenergan which helped significantly but she has not at home. She called EMS today because her symptoms were not improving significantly. Her only complaint right now is nausea. She is on 2 L nasal cannula at home and states that she is not short of breath not having any significant cough or respiratory complaints at this point. Related Data Home Medications Medication
[2022-12-14 13:56] LABS: Alanine Aminotransferase 17 U/L (12-78); Albumin Level 3.3 g/dl (3.5-5.0); Albumin/Globulin Ratio 1.1 (1.1-1.8); Alkaline Phosphatase 81 U/L (38-126); Aspartate Amino Transferase 24 U/L (14-36); Bilirubin,Total 0.5 mg/dl (0.2-1.3); Blood Urea Nitrogen 11 mg/dl (7-17); Carbon Dioxide 23 mmol/L (22.0-30.0); Creatinine Clearance Estimated 49 mL/min (50-200); Estimated Glomerular Filt Rate 99 ml/min (>60); GFR (African American) 120 ML/MIN (>60); Total Protein,Serum 6.3 g/dl (6.3-8.2)
[2022-12-14 13:57] LABS: Calcium 8.5 mg/dl (8.4-10.2); Glucose 109 mg/dl (74-100)
[2022-12-14 14:01] VITALS: BP 164/72; PULSE 76; O2SAT 97
[2022-12-14 14:30] VITALS: BP 181/79; PULSE 77; O2SAT 95
[2022-12-14 15:00] VITALS: BP 170/67; PULSE 74; RESP 20; O2SAT 94
[2022-12-14 15:19] VITALS: BP 170/67; PULSE 74; RESP 18; TEMP 36.7; O2SAT 95
== END 2022-12-14 15:23 | disposition home or self-care (01) ==
PROVIDERS: Emergency Provider Student in an Organized Health Care Education/Training Program; PCP Internal Medicine Adolescent Medicine
DX: U07.1 COVID-19 (principal); E87.6 Hypokalemia; R11.2 Nausea with vomiting, unspecified; I65.29 Occlusion and stenosis of unspecified carotid artery; J44.9 Chronic obstructive pulmonary disease, unspecified; F32.A Depression, unspecified; E11.9 Type 2 diabetes mellitus without complications; K21.9 Gastro-esophageal reflux disease without esophagitis; E78.5 Hyperlipidemia, unspecified; F17.200 Nicotine dependence, unspecified, uncomplicated; Z86.73 Personal history of transient ischemic attack (TIA), and cerebral infarction without residual deficits; Z85.51 Personal history of malignant neoplasm of bladder
CPT/HCPCS: 80053; 96374; 99284; J2405

== ENCOUNTER 2023-01-31 13:58 | Emergency (ER) | payer MEDICARE, OTHER, SELFPAY ==
[2023-01-31 13:59] VITALS: BP 188/88; PULSE 117; RESP 16; TEMP 36.6; O2SAT 95; BMI 23.1
--- OUTSIDE RECORDS SUMMARY | 2023-01-31 14:14 | XMS_ITS | Patient Health Record ---
Author Name Unknown Organization [facility] Address [address] [place] [address] Care Team Providers Care Centrifugal Station Operator Name Role Phone Alejo Joseph Primary Care Provider Carolyn Granda Unavailable [phone] ALLERGIES Allergen (clinical drug ingredient) Drug/Non Drug Allergy documented on EMR Reaction Allergy Type Onset Date Status fluticasone / salmeterol advair (uncoded) Unknown Allergy Active Duragesic Unknown Drug Allergy Active diltiazem Cardizem Unknown Drug Allergy Active RESULTS Component Value Reference Range Notes [id number] Reviewed date:08/20/2022 09:02:11 AM Interpretation: Performing Lab: Notes/Report: VITB12 342 239-931 pg/mL H-TVITD Reviewed date:08/20/2022 09:02:11 AM Interpretation: Performing Lab: Notes/Report: TVITD 52.6 30-100 ng/mL Deficient <20 ng/mL Insufficient 20-30 ng/mL Sufficient 30-100 ng/mL Potential Toxicity >100 ng/mL M-Lipid Panel Reviewed date:08/20/2022 09:02:10 AM Interpretation: Performing Lab: Notes/Report: Patient Fasting? Y TRIG 224 30-150 mg/dl CHOL 159 140-200 mg/dl DLDL 55.40 100-129 mg/dL VLDL 45 0-40 mg/dL HDL 65 40-60 mg/dl CHLHDL 2.4 1-3.5
--- NOTE | 2023-01-31 14:15 | CT_ITS ---
PROCEDURE INFORMATION: Exam: CT Abdomen And Pelvis With Contrast Exam date and time: 01/31/2023 2:59 PM Age: 67 years old Clinical indication: Abdominal pain; Other: Llq; Additional info: Llq abd pain, brbpr TECHNIQUE: Imaging protocol: Computed tomography of the abdomen and pelvis with contrast. Radiation optimization: All CT scans at this facility use at least one of these dose optimization techniques: automated exposure control; mA and/or kV adjustment per patient size (includes targeted exams where dose is matched to clinical indication); or iterative reconstruction. Contrast material: ISOVUE; Contrast volume: 75 ml; Contrast route: IV; REPORTING DATA: Count of CT and Cardiac NM exams in prior 12 months: This patient has received 3 known CTs and 0 known cardiac nuclear medicine studies in the 12 months prior to the current study. COMPARISON: CT CHEST W CON 10/27/2020 1:58 PM FINDINGS: Lungs: Right lower lobe pulmonary granuloma noted. Pleural spaces: No pneumothorax. No pleural effusion. Liver: No focal hepatic lesions. Gallbladder and bile ducts: Gallbladder is distended without radiopaque cholelithiasis. No biliary ductal dilation. Pancreas: No peripancreatic fluid stranding. No main pancreatic ductal dilation. Spleen: No splenomegaly. Adrenal glands: Unchanged 10 mm left adrenal nodule. Kidneys and ureters: Nephrograms are symmetric. No nephrolithiasis or hydroureteronephrosis on either side. No solid lesions Stomach and bowel: There is a long segment of mucosal hyperenhancement, submucosal edema and mesenteric fat stranding encompassing the distal transverse and descending colon. Appendix: A normal appendix is not well visualized. However, no evidence of inflammatory changes in the right lower quadrant to suggest acute appendicitis. Intraperitoneal space: Mild pericolonic mesenteric fat stranding noted. There is no evidence of free intraperitoneal or pelvic fluid. Vasculature: Aorta is nonaneurysmal. The aorta demonstrates moderate atherosclerotic calcification. Lymph nodes: No lymphadenopathy. Urinary bladder: Unremarkable as visualized. Reproductive: Unremarkable as visualized. Bones/joints: Multilevel degenerative changes of the included spine. No acute osseous abnormality. Soft tissues: Unremarkable. IMPRESSION: Infectious/inflammatory colitis
--- NOTE | 2023-01-31 14:17 | HMH.EDGENADL ---
Discharge Plan Disposition Patient Disposition: Home, Self-Care Prescriptions Prescriptions: New ciprofloxacin HCl 750 mg tablet 750 mg PO DAILY 7 Days Qty: 7 0RF metronidazole 500 mg tablet 500 mg PO BID 7 Days Qty: 14 0RF No Action hydrocodone-ibuprofen 7.5-200 mg tablet 1 tab PO TID Patient Comments: TAKE ONE TABLET BY MOUTH THREE TIMES DAILY --TAKE WITH FOOD-- MAY CAUSE DROWSINESS gabapentin 400 mg capsule 400 mg PO TID Patient Comments: TAKE ONE CAPSULE BY MOUTH THREE TIMES DAILY MAY CAUSE DROWSINESS amlodipine 10 mg tablet 10 mg PO DAILY Patient Comments: TAKE ONE TABLET BY MOUTH EVERY DAY pantoprazole 40 mg tablet,delayed release (DR/EC) 40 mg PO DAILY Patient Comments: TAKE ONE TABLET BY MOUTH EVERY DAY ergocalciferol (vitamin D2) 1,250 mcg (50,000 unit) capsule 1,250 mcg PO DAILY Patient Comments: TAKE ONE CAPSULE BY MOUTH ONCE A WEEK hydroxyzine pamoate 25 mg capsule 25 mg PO Q8HP PRN (Reason: Anxiety) Patient Comments: TAKE ONE CAPSULE BY MOUTH EVERY 8 HOURS NEEDED FOR ANXIETY/insomnia MAY CAUSE DROWSINESS rosuvastatin 10 mg tablet 10 mg PO DAILY Patient Comments: TAKE ONE TABLET BY MOUTH EVERY DAY budesonide-formoterol [Symbicort] 160-4.5 mcg/actuation HFA aerosol inhaler 2 inh INHALATION BID Patient Comments: INHALE TWO PUFFS BY MOUTH TWICE DAILY Breztri Aerosphere 160-9-4.8 mcg/actuation HFA aerosol inhaler 2 inh INHALATION BID Patient Comments: INHALE 2 PUFFS BY MOUTH TWICE DAILY promethazine 25 mg tablet 25 mg PO TID PRN (Reason: nausea and vomiting if zofran is not working) 5 Days Qty: 20 0RF ondansetron 4 mg tablet,disintegrating 4 mg PO Q6H PRN (Reason: nausea and vomiting) 5 Days Qty: 20 0RF Referrals Follow up/Referrals: Carolyn Granda APRN [Primary Care Provider] - See instructions Activity Restrictions/Add. Instructions Additional Instructions/Restrictions: Take ciprofloxacin and Flagyl as prescribed for 7 days. Call your family doctor to establish care for this visit to the emergency department and schedule follow-up within 48 hours to ensure improvement. If you have any worsening of your condition or any other concerning signs or symptoms, return to the emergency department or your primary care doctor for further evaluation. Clinical Impressions Clinical Impression: Abdominal pain, LLQ, Hematochezia Instructions Patient Instructions: DI for Acute Abdominal Pain Discharge ED Provider: Edmund Adame General Adult HPI <Mary Gregorio MD - Last Filed: 01/31/23 15:14> General Chief complaint: Abdominal Pain Stated complaint: hurting in colon and bleeding Time Seen by Provider: 01/31/23 14:07 Mode of Arrival: Ambulatory Source of Information: Patient Limitations: No Limitations Description of Symptoms (Recalled from ER Triage Doc. by RN): Patient states she began to have sharp left lower abdomen pain yesterday. Since then she has had vomiting and blood when she wipes her rectum. History of Present Illness HPI narrative: Patient is a 67-year-old female with 2 days of left lower quadrant abdominal pain and passing blood. She is unsure as to whether or not this is coming from her rectum or her vagina. She has a history of normal Pap smears in the past has never had any vaginal complaints in the past including vaginal bleeding. Denies any history of diverticulosis or diverticulitis that she is aware of. Had a colonoscopy over 10 years ago which was normal. She denies being on any blood thinners anticoagulation or any antiplatelet medications. States she is still having significant left lower quadrant abdominal pain and some nausea and vomiting associated with today's symptoms. Related Data Home Medications Medication Instructions Recorded Confirmed amlodipine 10 mg tablet 10 mg PO DAILY BLOOD PRESSURE 08/19/22 11/04/22 budesonide 160 mcg-glyc
[2023-01-31 14:30] VITALS: BP 154/75; PULSE 95; O2SAT 93
[2023-01-31 14:30] LABS: Basophils % 0.3 % (0.1-2.0); Eosinophils # 0.2 K/mm3 (0.0-0.4); Eosinophils % 1.2 % (0.1-12.0); Hematocrit 47.8 % (37.0-47.0); Hemoglobin 15.7 g/dL (12.2-16.2); Lymphocytes # 2.8 K/mm3 (0.7-4.5); Lymphocytes % 21.5 % (10-50); Mean Corpuscular HGB Conc 32.8 g/dL (31.8-35.4); Mean Corpuscular Hemoglobin 31.5 pg (27.0-31.2); Mean Corpuscular Volume 96.1 fl (81-99); Mean Platelet Volume 8.1 fl (7.4-10.4); Monocytes # 0.5 K/mm3 (0.1-1.0); Monocytes % 3.9 % (1.7-9.3); Neutrophils # 9.5 K/mm3 (1.8-7.8); Neutrophils % 73.1 % (37.0-80.0); Platelet Count 269 K/mm3 (142-424); Red Blood Count 4.97 M/mm3 (4.20-5.40); Red Cell Distribution Width 14.5 % (11.5-17.5)
[2023-01-31 14:34] LABS: Chloride 101 mmol/L (98-107); Potassium 4.2 mmoL/L (3.5-5.1); Sodium 138 mmol/L (136-145)
[2023-01-31 14:37] LABS: Alanine Aminotransferase 26 U/L (12-78); Albumin Level 4.2 g/dl (3.5-5.0); Albumin/Globulin Ratio 1.1 (1.1-1.8); Alkaline Phosphatase 81 U/L (38-126); Anion Gap 16.2 mEq/L (5-15); Aspartate Amino Transferase 28 U/L (14-36); Bilirubin,Total 0.6 mg/dl (0.2-1.3); Blood Urea Nitrogen 18 mg/dl (7-17); Calcium 9.7 mg/dl (8.4-10.2); Carbon Dioxide 25 mmol/L (22.0-30.0); Creatinine Clearance Estimated 51 mL/min (50-200); Estimated Glomerular Filt Rate 83 ml/min (>60); GFR (African American) 100 ML/MIN (>60); Globulin 3.8 g/dL (1.3-3.2); Glucose 154 mg/dl (74-100); INR 1.01 (0.9-1.1); Prothrombin Time 10.9 seconds (10.1-12.5)
[2023-01-31 14:42] LABS: Occult Blood,Stool Positive (Negative)
[2023-01-31 15:06] LABS: Lactic Acid 2.6 mmol/L (0.7-2.1)
[2023-01-31 15:30] VITALS: BP 180/69; PULSE 88; RESP 18; O2SAT 94
--- NOTE | 2023-01-31 15:46 | PC.NURSE ---
Addendum entered by Kaylee Ibanez, EMT 01/31/23 15:47: Manual BP obtained 150/72 Original Note: Rounded on pt. Pt concerned about BP of 181/73
[2023-01-31 16:01] VITALS: BP 161/64; PULSE 82; RESP 18; O2SAT 92
--- NOTE | 2023-01-31 16:29 | PC.NURSE ---
Pt ambulatory to bathroom and back to bed. No other needs voiced at this time.
[2023-01-31 17:30] VITALS: BP 190/79; PULSE 84; RESP 18; O2SAT 100
[2023-01-31 17:54] LABS: Lactic Acid 1.4 mmol/L (0.7-2.1)
[2023-01-31 18:08] VITALS: BP 178/69; PULSE 82; RESP 20; TEMP 36.6; O2SAT 96
[2023-01-31 18:50] LABS: Reflex Lactic Add Lactic Reflex
== END 2023-01-31 18:12 | disposition home or self-care (01) ==
PROVIDERS: Student in an Organized Health Care Education/Training Program; Emergency Provider Emergency Medicine; PCP Nurse Practitioner Family
DX: R10.32 Left lower quadrant pain (principal); K92.1 Melena; R74.02 Elevation of levels of lactic acid dehydrogenase [LDH]; F17.210 Nicotine dependence, cigarettes, uncomplicated; J44.9 Chronic obstructive pulmonary disease, unspecified; E11.9 Type 2 diabetes mellitus without complications; I65.29 Occlusion and stenosis of unspecified carotid artery; K21.9 Gastro-esophageal reflux disease without esophagitis; E78.5 Hyperlipidemia, unspecified; F32.A Depression, unspecified
CPT/HCPCS: 74177; 80053; 82272; 83605; 85025; 85610; 85730; 96361; 96374; 96375; 99285; G0328; J2405; Q9967

== ENCOUNTER 2023-07-24 07:01 | Outpatient (CLI) | payer MEDICARE, OTHER, SELFPAY ==
[2023-07-24 07:26] LABS: Blood Urea Nitrogen 29 mg/dl (7-17); Estimated Glomerular Filt Rate 32 ml/min (>60); GFR (African American) 39 ML/MIN (>60)
--- NOTE | 2023-07-24 07:34 | MR_ITS ---
FINAL REPORT CLINICAL HISTORY: COGNITIVE CHANGE. memory loss. unsteady gait FINDINGS: Multiplanar MR imaging of the brain was performed without and with contrast. There is mild age-appropriate atrophy. Scattered foci of increased T2 signal are seen in the cerebral white matter that have a nonspecific appearance but likely represent moderate chronic ischemic/gliotic changes. There is no evidence of intracranial hemorrhage or mass. No abnormal ventricular dilatation is identified. There is no evidence of shift of the midline structures. No abnormal extra-axial fluid collection is seen. No area of abnormal restricted diffusion is identified. The posterior fossa and brainstem have an unremarkable appearance. No abnormal contrast enhancement is seen. Normal major vessel vascular flow voids are seen. There is mild mucosal thickening in the ethmoid air cells. IMPRESSION: Moderate atrophy and chronic ischemic/gliotic changes. No acute intracranial abnormality. Reviewed, Interpreted and Dictated by Jayy Lamas III, MD Transcribed by Anabell Price Authenticated and [facility]
[2023-07-24] MEDS: SODIUM CHLORIDE 0.9% 10ML SYR (RAD ONLY) 10 ML IV (08:20)
[2023-07-24] MEDS: GADOTERIDOL INJ 17ML SYRINGE 10 ML IV (08:20)
== END 2023-07-24 23:59 ==
LOC: RAD 07:01
PROVIDERS: PCP Nurse Practitioner Family; Visit Provider Nurse Practitioner Family
DX: R41.89 Other symptoms and signs involving cognitive functions and awareness (principal)
CPT/HCPCS: 36415; 70553; 82565; 84520; A9576

== ENCOUNTER 2023-09-08 13:41 | Outpatient (CLI) | payer MEDICARE, OTHER, SELFPAY ==
--- NOTE | 2023-09-08 13:52 | CT_ITS ---
FINAL REPORT TECHNIQUE: Axial CT images of the chest were obtained without contrast. Low-dose protocol was utilized. This study was performed with techniques to keep radiation doses as low as reasonably achievable (ALARA). Individualized dose reduction techniques using automated exposure control or adjustment of mA and/or kV according to the patient's size were employed. CLINICAL HISTORY: H/O TOBACCO USE CURRENT SMOKER 1PPD X56 YEARS COMPARISON: CT chest 10/27/[address] low-dose 10/20/2019 FINDINGS: CT CHEST WITHOUT, LOW DOSE SCREENING CT Di Vol: 2.90 mGy DLP: 96.38 mGy*cm There is no axillary, mediastinal, or hilar adenopathy. The heart size is normal. There is no pleural or pericardial effusion. There are mild changes of centrilobular emphysema. The lung windows show stable nodules in the right upper and middle lobes, predominantly along the minor fissure. Findings are unremarkable. There is a new 4 mm nodule in the right lower lobe best seen on image 49 of series 4. Limited images of the upper abdomen demonstrate no acute findings. IMPRESSION: New right lower lobe 4 mm nodule. LR Category 3: 6 month follow-up low-dose chest CT is recommended. Reviewed, Interpreted and Dictated by Angel Rivas MD Transcribed by Jennifer Shin Authenticated and [facility]
== END 2023-09-08 23:59 | disposition home or self-care (01) ==
LOC: RAD 13:44
PROVIDERS: PCP Nurse Practitioner Family; Visit Provider Nurse Practitioner Family
DX: Z87.891 Personal history of nicotine dependence (principal)
CPT/HCPCS: 71271

== ENCOUNTER 2024-01-12 13:51 | Outpatient (CLI) | payer MEDICARE, OTHER, SELFPAY ==
--- NOTE | 2024-01-12 | US_ITS ---
FINAL REPORT CLINICAL HISTORY: abn renal labs FINDINGS: The right kidney measures 9.2 cm in length. It is normal in echogenicity. There is no hydronephrosis. The left kidney measures 8.4 cm in length. It is normal in echogenicity. There is no hydronephrosis. The spleen is unremarkable. IMPRESSION: Normal renal ultrasound. Reviewed, Interpreted and Dictated by Crow De Souza MD Transcribed by Etta Aponte Authenticated and [facility]
== END 2024-01-12 23:59 | disposition home or self-care (01) ==
LOC: RAD 13:51
PROVIDERS: PCP Nurse Practitioner Family; Visit Provider Nurse Practitioner Family
DX: R94.4 Abnormal results of kidney function studies (principal)
CPT/HCPCS: 76770

== ENCOUNTER 2024-08-27 12:27 | Emergency (ER) | payer MEDICARE, OTHER, SELFPAY ==
[2024-08-27 12:35] VITALS: BP 204/113; PULSE 114; RESP 20; TEMP 36.6; O2SAT 92; BMI 20.5
--- NOTE | 2024-08-27 12:37 | XR_ITS ---
FINAL REPORT CLINICAL HISTORY: Shortness of breath, cough COMPARISON: 12/09/2022 FINDINGS: A portable view of the chest was obtained. Cardiac and mediastinal silhouettes are within normal limits. The lungs are clear. There is no pleural effusion or pneumothorax. IMPRESSION: No acute process on this portable exam. Reviewed, Interpreted and Dictated by Ching Lindsay MD Transcribed by Jennifer Shin Authenticated and [facility]
[2024-08-27] MEDS: IPRATROPIUM/ALBUTEROL 3 ML NEB IH (12:47)
--- NOTE | 2024-08-27 12:50 | PC.NURSE ---
placed pt on DuoNeb. Pt states she can have it just makes me shake . RT called regarding VBG order and blood in the lab.
[2024-08-27 13:02] LABS: Basophils # 0.1 K/mm3 (0-0.2); Basophils % 0.7 % (0.1-2.0); Eosinophils # 0.2 Kmm3 (0.0-0.4); Eosinophils % 2.2 % (0.1-12.0); Hematocrit 47.4 % (37.0-47.0); Hemoglobin 16.1 g/dL (12.2-16.2); Immature Granulocytes # 0.02 10^3uL; Immature Granulocytes % 0.2 %; Lymphocytes # 3.9 K/mm3 (0.7-4.5); Lymphocytes % 40.1 % (10-50); Mean Corpuscular Hemoglobin 32.3 pg (27.0-31.2); Mean Corpuscular Volume 95.2 fl (81-99); Mean Platelet Volume 9.1 fl (7.4-10.4); Monocytes # 0.6 K/mm3 (0.1-1.0); Monocytes % 5.8 % (1.7-9.3); Neutrophils # 4.9 K/mm3 (1.8-7.8); Nucleated Red Blood Cells # 0 10^3/uL; Nucleated Red Blood Cells % 0 %; Platelet Count 338 K/mm3 (142-424); Red Blood Count 4.98 M/mm3 (4.20-5.40); Red Cell Distribution Width 12.5 % (11.5-17.5); White Blood Count 9.7 K/mm3 (4.8-10.8)
[2024-08-27 13:03] VITALS: BP 220/172; PULSE 101; O2SAT 99
[2024-08-27 13:03] LABS: Albumin Level 4.8 g/dl (3.5-5.0); Chloride 109 mmol/L (98-107); Sodium 141 mmol/L (136-145)
[2024-08-27 13:04] LABS: Potassium 4.4 mmoL/L (3.5-5.1)
[2024-08-27 13:06] LABS: Alanine Aminotransferase 24 U/L (12-78); Albumin/Globulin Ratio 1.5 (1.1-1.8); Alkaline Phosphatase 108 U/L (38-126); Anion Gap 11.4 mEq/L (5-15); Aspartate Amino Transferase 34 U/L (14-36); Bilirubin,Total 0.8 mg/dl (0.2-1.3); Carbon Dioxide 25 mmol/L (22.0-30.0); Globulin 3.1 g/dL (1.3-3.2); Total Protein,Serum 7.9 g/dl (6.3-8.2)
--- NOTE | 2024-08-27 13:06 | [facility].EDCP ---
Discharge Plan Disposition Patient Disposition: Home, Self-Care Prescriptions Prescriptions: New prednisone 20 mg tablet 20 mg PO DAILY 3 Days Qty: 3 0RF azithromycin [Zithromax Z-Alf] 250 mg tablet 250 mg PO DAILY 5 Days Qty: 5 0RF albuterol sulfate 2.5 mg /3 mL (0.083 %) solution for nebulization 2.5 mg inhalation Q4H PRN (Reason: bronchospasm) 30 Days Qty: 90 0RF No Action gabapentin 400 mg capsule 400 mg PO TID Patient Comments: TAKE ONE CAPSULE BY MOUTH THREE TIMES DAILY MAY CAUSE DROWSINESS amlodipine 10 mg tablet 10 mg PO DAILY Patient Comments: TAKE ONE TABLET BY MOUTH EVERY DAY pantoprazole 40 mg tablet,delayed release (DR/EC) 40 mg PO DAILY Patient Comments: TAKE ONE TABLET BY MOUTH EVERY DAY rosuvastatin 10 mg tablet 10 mg PO DAILY Patient Comments: TAKE ONE TABLET BY MOUTH EVERY DAY Breztri Aerosphere 160-9-4.8 mcg/actuation HFA aerosol inhaler 2 inh INHALATION BID Patient Comments: INHALE 2 PUFFS BY MOUTH TWICE DAILY ondansetron 4 mg tablet,disintegrating 4 mg PO Q6H PRN (Reason: nausea and vomiting) 5 Days Qty: 20 0RF losartan 50 mg tablet 50 mg PO DAILY Patient Comments: TAKE ONE TABLET BY MOUTH ONCE DAILY tramadol 50 mg tablet 50 mg PO TIDP PRN (Reason: Pain (Scale Score 4-6)) Patient Comments: TAKE ONE TABLET BY MOUTH THREE TIMES DAILY MAY CAUSE DROWSINESS propranolol 10 mg tablet 10 mg PO BID Patient Comments: TAKE ONE TABLET BY MOUTH TWICE DAILY FOR TREMOR albuterol sulfate 90 mcg/actuation HFA aerosol inhaler 2 puff INHALATION Q6HP PRN (Reason: Shortness Of Breath Or Wheezing) Patient Comments: INHALE TWO PUFFS BY MOUTH EVERY 6 HOURS NEEDED FOR SHORTNESS OF BREATH escitalopram oxalate 20 mg tablet 20 mg PO DAILY Patient Comments: TAKE ONE TABLET BY MOUTH EVERY DAY losartan-hydrochlorothiazide 100-12.5 mg tablet 1 tab PO DAILY Patient Comments: TAKE ONE TABLET BY MOUTH EVERY DAY Jardiance 10 mg tablet 10 mg PO DAILY Patient Comments: TAKE ONE TABLET BY MOUTH EVERY DAY Referrals Follow up/Referrals: Carolyn Granda APRN [Primary Care Provider] - See instructions Activity Restrictions/Add. Instructions Additional Instructions/Restrictions: As we discussed, you will be treated for a COPD exacerbation. Please follow-up with pulmonology. Please return to your ED for worsening of condition. Please stop smoking. Clinical Impressions Clinical Impression: Acute respiratory acidosis, Acute exacerbation of chronic obstructive pulmonary disease, Tobacco use Instructions Patient Instructions: DI for Chronic Obstructive Pulmonary Disease Print Language Print Language: Portuguese Discharge ED Provider: Edmund Adame HPI <Leigh Ann Adorno, [employer]TAIL DRIVER - Last Filed: 08/27/24 15:49> General Chief Complaint: Shortness of Breath/Dyspnea Stated Complaint: diff breathing Time Seen by Provider: 08/27/24 12:34 Mode of Arrival: Ambulatory Source of Information: Patient Description of Symptoms (Recalled from ER Triage Doc. by RN): Patient presents with SOB and trouble breathing today x7 days. Patient is 2L NC baseline with increased work of breathing. Patient states inhalers have not been working. Related Data Home Medications ?Medication ?Instructions ?Recorded ?Confirmed amlodipine 10 mg tablet 10 mg PO DAILY BLOOD PRESSURE 08/19/22 08/27/24 budesonide 160 mcg-glycopyr 9 2 inh inhalation BID Breathing 08/19/22 08/27/24 mcg-formot 4.8 mcg/actuation HFA problems inhaler (Breztri Aerosphere) gabapentin 400 mg capsule 400 mg PO TID Pain 08/19/22 08/27/24 pantoprazole 40 mg tablet,delayed 40 mg PO DAILY GERD 08/19/22 08/27/24 release rosuvastatin 10 mg tablet 10 mg PO DAILY Cholesterol 08/19/22 08/27/24 albuterol sulfate 90 mcg/actuation 2 puff inhalation Q6HP PRN 08/27/24 08/27/24 aerosol inhaler Shortness Of Breath Or Wheezing empagliflozin 10 mg tablet 10 mg PO DAILY 08/27/24 08/27/24 (Jardiance) escitalopram oxalate 20 mg tablet 20 mg PO DAILY 08/27/24 08/27/24 losartan 100 1 tab PO DAILY 08/27/24 08/27/24 mg-hydrochlorothiazide 12.5 mg tablet losartan 50 mg tablet 50 mg PO DAILY 08/27/24 08/27/24 propranolol 10 mg tablet 10 mg PO BID 08/27/24 08/27/24 tramadol 50 mg tablet 50 mg PO TIDP PRN Pain (Scale 05/09/25 05/09/25 Score 4-6) Previous Rx's ?Medication ?Instructions ?Recorded ondansetron 4 mg disintegrating 4 mg PO Q6H PRN nausea and 12/14/22 tablet vomiting 5 days #20 tabs albuterol sulfate 2.5 mg/3 mL 2.5 mg (3 mL) inhalation Q4H PRN 08/27/24 (0.083 %) solution for nebulization bronchospasm 30 days #90 mL azithromycin 250 mg tablet 250 mg PO DAILY 5 days #5 tabs 08/27/24 (Zithromax Z-Alf) prednisone 20 mg tablet 20 mg PO DAILY 3 days #3 tabs 08/27/24 Allergies Allergy/AdvReac Type Severity Reaction Status Date / Time fentanyl (FENTANYL) Allergy Mild Verified 08/27/22 10:05 diltiazem (From Cardizem) Allergy Verified 08/27/22 10:05 fluticasone (From Advair Allergy Verified 08/27/22 10:05 Diskus) salmeterol (From Advair Allergy Verified 08/27/22 10:05 Diskus) [facility] <Leigh Ann Adorno APRN - Last Filed: 08/27/24 15:49> [facility] Disclaimer: The information contained in this section may have been updated after the patient was seen, as this information can be updated by other users. Medical History Abdominal hernia Bladder cancer Carotid artery stenosis COPD (chronic obstructive pulmonary disease) Depression Diabetes GERD (gastroesophageal reflux disease) HLD (hyperlipidemia) TIA (transient ischemic attack) Surgical History H/O tubal ligation Family History Other Cirrhosis Diabetes Hyperlipidemia Hypertension Pancreatic cancer Social History Smoking Status: Current every day smoker alcohol intake: never current occupational status: retired Travel in the last 8 weeks?: None Have you lived/traveled outside [place] in past 30 days?: No Contact w/someone who lives/traveled outside US past 30 days?: No Exposure to someone with infectious disease in past 14 days?: No Do you have a fever (greater than 100.4 F or 38 C)?: No Have you tested positive for COVID-19?: No Exposed to someone with COVID-19 in past 14 days?: No Do you have a sore throat?: No Do you have a cough?: No Do you have any weakness?: No Do you have any diarrhea?: No Are you experiencing any unusual bleeding?: No Do you have any muscle aches/pain?: No Do you have any abdominal pain?: No Are you experiencing loss of taste or smell?: No Other Medical History Have you received the Flu Vaccine for this season: No Have you received the Pneumonia Vaccine: Yes <Nayla Shin DO - Last Filed: 08/27/24 15:47> ROS Obtained: Yes All systems reviewed & no additional complaints except as documented Physical Exam <Leigh Ann Adorno APRN - Last Filed: 08/27/24 15:49> General General appearance: alert Head Head exam: atraumatic and normocephalic Eye Eye exam: Present normal appearance and PERRL; Absent nystagmus ENT ENT exam: Present normal exam Neck Neck exam: Present normal inspection Chest Chest inspection: Present normal inspection and symmetric chest wall rise; Absent tenderness Respiratory Respiratory exam: Present respiratory distress and wheezes Cardiovascular Cardiovascular exam: Present tachycardia Abdominal Exam Abdominal exam: Present soft and normal bowel sounds; Absent tenderness Extremities Exam Extremities exam: Present normal inspection and full ROM Back Exam Back exam: Present normal inspection and full ROM; Absent tenderness Neurological Exam Neurological exam: Present alert and oriented X3 Psychiatric Psychiatric exam: Present normal affect and normal mood Skin Skin exam: Present dry HEART Score <Leigh Ann Adorno APRN - Last Filed: 08/27/24 15:49> HEART Score HEART Score: 6 <Nayla Shin DO - Last Filed: 08/27/24 15:47> HEART Score HEART Score assessment performed?: Yes History (anamnesis): Slightly suspicious ECG: Non-specific disturbance Age: >65 years Risk factors: Atherosclerosis history Troponin: 1-3x normal limit HEART Score: 6 <Edmund Adame MD - Last Filed: 08/27/24 16:55> HEART Score HEART Score: 6 Critical Care <Leigh Ann Adorno APRN - Last Filed: 08/27/24 15:49> Critical Care Time Critical Care Time: No <Nayla Shin DO - Last Filed: 08/27/24 15:47> Critical Care Time Critical Care Time: Yes Attestation: On 08/27/24, the high probability of a clinically significant, sudden or life threatening deterioration of the following system(s) required my full and direct attention, intervention and personal management. The time I documented below is in addition to time spent performing reported procedures but includes the following listed in this critical care notation. Total Time Total Critical Care Time: 45 Medical Decision Making <Leigh Ann Adorno APRN - Last Filed: 08/27/24 15:49> Akash Inquiry Pt receiving controlled substance: No Vital Signs Vital Signs: 08/27/24 12:35 08/27/24 13:03 08/27/24 13:30 Temperature 98 F Temperature Source Oral Pulse Rate 101 H 93 H Pulse Rate [Right] 114 H Respiratory Rate 20 Blood Pressure 220/172 H 127/77 Blood Pressure [Left Arm] 204/113 H Blood Pressure Mean [Left Arm] 143 Blood Pressure Source [Left Arm] Automatic Cuff Blood Pressure Position [Left Arm] Sitting 02 Sat by Pulse Oximetry 92 L 99 98 Oxygen Delivery Method Nasal Cannula Oxygen Flow Rate (LPM) 2 08/27/24 14:30 08/27/24 15:00 08/27/24 15:54 Temperature 98 F Temperature Source Pulse Rate 78 74 80 Pulse Rate [Right] Respiratory Rate 18 Blood Pressure 147/85 H 187/88 H 159/87 H Blood Pressure [Left Arm] Blood Pressure Mean [Left Arm] Blood Pressure Source [Left Arm] Blood Pressure Position [Left Arm] 02 Sat by Pulse Oximetry 99 96 Oxygen Delivery Method Oxygen Flow Rate (LPM) Lab Data Labs: Lab Results 08/27/24 12:40: WBC 9.7, RBC 4.98, Hgb 16.1, Hct 47.4 H, MCV 95.2, MCH 32.3 H, MCHC 34.0, RDW 12.5, Plt Count 338, MPV 9.1, Neut % (Auto) 51.0, Lymph % (Auto) 40.1, [place] % (Auto) 5.8, Eos % (Auto) 2.2, Baso % (Auto) 0.7, Neut # (Auto) 4.9, Lymph # (Auto) 3.9, [place] # (Auto) 0.6, Eos # (Auto) 0.2, Baso # (Auto) 0.1, D-Dimer 0.74 H, VBG pH 7.25 L, VBG pCO2 54.9 H, VBG pO2 35.6, VBG HCO3 23.7, VBG Total CO2 25.4, VBG O2 Saturation 66.8, VBG Base Excess -3.5 L, VBG Lactic Acid 1.8, Sodium 141, Potassium 4.4, Chloride 109 H, Carbon Dioxide 25, Anion Gap 11.4, BUN 21 H, Creatinine 1.00, Estimated Creat Clear 44, Estimated GFR 55 L, Est GFR ( Amer) 66, Glucose 122 H, Calcium 11.0 H, Total Bilirubin 0.8, AST 34, ALT 24, Alkaline Phosphatase 108, Troponin I 0.04 H, NT-Pro-B Natriuret Pep 962 H, Total Protein 7.9, Albumin 4.8, Globulin 3.1, Albumin/Globulin Ratio 1.5 08/27/24 13:56: VBG pH 7.29 L, VBG pCO2 40.5, VBG pO2 45.7 H, VBG HCO3 18.9 L, VBG Total CO2 20.2 L, VBG O2 Saturation 79.8 H, VBG Base Excess -7.7 L, VBG Lactic Acid 1.1 08/27/24 15:13: Troponin I 0.04 H 08/27/24 12:40 08/27/24 12:40 Response Orders (Tests/Meds): ED MEDICATIONS Discontinued Medications Generic Name Dose Route Start Last Admin Trade Name Freq PRN Reason Stop Dose Admin Albuterol/Ipratropium 3 ml 08/27/24 12:37 08/27/24 12:47 Ipratropium/Albuterol 3 Ml Neb IH 08/27/24 12:38 3 ml ONCE ONE Administration Iopamidol 70 ml 08/27/24 14:01 08/27/24 14:02 Iopamidol-370 (76%);100ml Bottle IV 08/27/24 14:02 70 ml ONCE ONE Administration Irbesartan 75 mg 08/27/24 13:19 08/27/24 14:04 Irbesartan 75mg Tablet PO 08/27/24 13:20 75 mg ONCE ONE Administration Methylprednisolone Sodium Succinate 125 mg 08/27/24 14:20 08/27/24 14:26 Methylprednisolone Sod Succ 125mg Vial IV 08/27/24 14:21 125 mg ONCE ONE Administration Sodium Chloride 10 ml 08/27/24 14:01 08/27/24 14:02 Sodium Chloride 0.9% 10ml Syr (Rad Only) IV 08/27/24 14:02 10 ml ONCE ONE Administration Sodium Chloride 50 ml 08/27/24 14:01 08/27/24 14:02 0.9 % Sodium Chloride 50 Ml Vial IV 08/27/24 14:02 50 ml ONCE ONE Administration ORDERS Category Date Time Status CT angio chest PE protocol Stat Cat Scan 08/27/24 13:22 Completed CXR --portable [XR chest portable] Stat Exams 08/27/24 12:37 Completed BNP [NT Pro Brain Natriuretic Pep.] Stat Lab 08/27/24 12:40 Completed CBC w/Auto Diff [Complete Blood Count Auto Diff] Stat Lab 08/27/24 12:40 Completed CMP [Comprehensive Metabolic Panel] Stat Lab 08/27/24 12:40 Completed D-Dimer Stat Lab 08/27/24 12:40 Completed Trop I [Troponin I] Stat Lab 08/27/24 12:40 Completed Troponin I Q3H Lab 08/27/24 15:13 Completed VBG [Venous Blood Gas] Stat RT 08/27/24 12:40 Completed VBG [Venous Blood Gas] Stat RT 08/27/24 13:56 Completed MDM Narrative Medical Decision Narrative: In summary, patient is a 69-year-old female PMHx COPD (2L NC prn), hypomagnesemia, hypokalemia, who presents to the ED with complaints of 2 weeks progressive shortness of breath. Patient states she has dyspnea upon exertion which is not normal for her. Patient states her shortness of breath has led her to feel overall fatigued. She was scheduled for endoscopy this morning so she did not take her daily medications. She states that smokes cigarettes for many years. She denies any other medical complaints at this time. Denies fever, chills, headache, visual disturbances, chest pain, abdominal pain, nausea, vomiting. Differential diagnosis includes COPD exacerbation, pneumonia, pneumothorax, infectious process, among others. Upon arrival she is alert, oriented, hypertensive, tachycardic, afebrile. Physical exam remarkable for mild respiratory distress, bilateral lung sounds tight, expiratory wheezing. Discussed with patient that we will administer DuoNeb, administer her morning blood pressure medication. Hematologic labs reviewed, CBC unremarkable for any leukocytosis, stable H&H. CMP unremarkable for any actionable abnormalities. First troponin < 0.04. Second trop < 0.04. BNP 962. VBG pH 7.25, CO2 54.9 lactic 1.8. D-dimer 0.74. Will proceed with CT scan. Chest CTA final read unremarkable for any evidence of pulmonary embolism or aortic dissection. Upon reassessment, patient's condition has improved, she looks significantly better. She is sitting at bedside with her oxygen off, no respiratory distress, sat mid 90s. She is requesting to be discharged home at this time. I discussed with patient that she will need to follow-up with pulmonology. We discussed wearing her oxygen more at home if she is requiring it. Discussed follow-up with PCP. We discussed return precautions to the ED and patient verbalized understanding. She states that she is out of her nebulizer treatments, advised we will treat for COPD exacerbation and I will refill nebulizer. DO Kip: I was consulted by the JENNIFER, and we discussed the complexity of the problems being addressed. I approved the treatment and management plan for this patient's care in the emergency department, thus performing a substantive portion of the medical decision making. Initially, patient looked bad with respiratory acidosis, increased work breathing, hypotension, tachycardia, however after intervention she was feeling a lot better and vital signs normalized. We considered admission for her respiratory acidosis and acute respiratory failure in the setting of COPD, however patient wants to go home. I do not feel this is unreasonable. Second troponin was pending as well as final reassessment at time of signout to oncoming provider, Dr. Adame. Nayla Shin DO <Nayla Shin DO - Last Filed: 08/27/24 15:47> Vital Signs Vital Signs: 08/27/24 12:35 08/27/24 13:03 08/27/24 13:30 Temperature 98 F Temperature Source Oral Pulse Rate 101 H 93 H Pulse Rate [Right] 114 H Respiratory Rate 20 Blood Pressure 220/172 H 127/77 Blood Pressure [Left Arm] 204/113 H Blood Pressure Mean [Left Arm] 143 Blood Pressure Source [Left Arm] Automatic Cuff Blood Pressure Position [Left Arm] Sitting 02 Sat by Pulse Oximetry 92 L 99 98 Oxygen Delivery Method Nasal Cannula Oxygen Flow Rate (LPM) 2 08/27/24 14:30 08/27/24 15:00 08/27/24 15:54 Temperature 98 F Temperature Source Pulse Rate 78 74 80 Pulse Rate [Right] Respiratory Rate 18 Blood Pressure 147/85 H 187/88 H 159/87 H Blood Pressure [Left Arm] Blood Pressure Mean [Left Arm] Blood Pressure Source [Left Arm] Blood Pressure Position [Left Arm] 02 Sat by Pulse Oximetry 99 96 Oxygen Delivery Method Oxygen Flow Rate (LPM) Lab Data Labs: Lab Results 08/27/24 12:40: WBC 9.7, RBC 4.98, Hgb 16.1, Hct 47.4 H, MCV 95.2, MCH 32.3 H, MCHC 34.0, RDW 12.5, Plt Count 338, MPV 9.1, Neut % (Auto) 51.0, Lymph % (Auto) 40.1, [place] % (Auto) 5.8, Eos % (Auto) 2.2, Baso % (Auto) 0.7, Neut # (Auto) 4.9, Lymph # (Auto) 3.9, [place] # (Auto) 0.6, Eos # (Auto) 0.2, Baso # (Auto) 0.1, D-Dimer 0.74 H, VBG pH 7.25 L, VBG pCO2 54.9 H, VBG pO2 35.6, VBG HCO3 23.7, VBG Total CO2 25.4, VBG O2 Saturation 66.8, VBG Base Excess -3.5 L, VBG Lactic Acid 1.8, Sodium 141, Potassium 4.4, Chloride 109 H, Carbon Dioxide 25, Anion Gap 11.4, BUN 21 H, Creatinine 1.00, Estimated Creat Clear 44, Estimated GFR 55 L, Est GFR ( Amer) 66, Glucose 122 H, Calcium 11.0 H, Total Bilirubin 0.8, AST 34, ALT 24, Alkaline Phosphatase 108, Troponin I 0.04 H, NT-Pro-B Natriuret Pep 962 H, Total Protein 7.9, Albumin 4.8, Globulin 3.1, Albumin/Globulin Ratio 1.5 08/27/24 13:56: VBG pH 7.29 L, VBG pCO2 40.5, VBG pO2 45.7 H, VBG HCO3 18.9 L, VBG Total CO2 20.2 L, VBG O2 Saturation 79.8 H, VBG Base Excess -7.7 L, VBG Lactic Acid 1.1 08/27/24 15:13: Troponin I 0.04 H Response Orders (Tests/Meds): ED MEDICATIONS Discontinued Medications Generic Name Dose Route Start Last Admin Trade Name Nicholasq PRN Reason Stop Dose Admin Albuterol/Ipratropium 3 ml 08/27/24 12:37 08/27/24 12:47 Ipratropium/Albuterol 3 Ml Neb IH 08/27/24 12:38 3 ml ONCE ONE Administration Iopamidol 70 ml 08/27/24 14:01 08/27/24 14:02 Iopamidol-370 (76%);100ml Bottle IV 08/27/24 14:02 70 ml ONCE ONE Administration Irbesartan 75 mg 08/27/24 13:19 08/27/24 14:04 Irbesartan 75mg Tablet PO 08/27/24 13:20 75 mg ONCE ONE Administration Methylprednisolone Sodium Succinate 125 mg 08/27/24 14:20 08/27/24 14:26 Methylprednisolone Sod Succ 125mg Vial IV 08/27/24 14:21 125 mg ONCE ONE Administration Sodium Chloride 10 ml 08/27/24 14:01 08/27/24 14:02 Sodium Chloride 0.9% 10ml Syr (Rad Only) IV 08/27/24 14:02 10 ml ONCE ONE Administration Sodium Chloride 50 ml 08/27/24 14:01 08/27/24 14:02 0.9 % Sodium Chloride 50 Ml Vial IV 08/27/24 14:02 50 ml ONCE ONE Administration ORDERS Category Date Time Status CT angio chest PE protocol Stat Cat Scan 08/27/24 13:22 Completed CXR --portable [XR chest portable] Stat Exams 08/27/24 12:37 Completed BNP [NT Pro Brain Natriuretic Pep.] Stat Lab 08/27/24 12:40 Completed CBC w/Auto Diff [Complete Blood Count Auto Diff] Stat Lab 08/27/24 12:40 Completed CMP [Comprehensive Metabolic Panel] Stat Lab 08/27/24 12:40 Completed D-Dimer Stat Lab 08/27/24 12:40 Completed Trop I [Troponin I] Stat Lab 08/27/24 12:40 Completed Troponin I Q3H Lab 08/27/24 15:13 Completed VBG [Venous Blood Gas] Stat RT 08/27/24 12:40 Completed VBG [Venous Blood Gas] Stat RT 08/27/24 13:56 Completed MDM Narrative Medical Decision Narrative: In summary, patient is a 69-year-old female PMHx COPD (2L NC prn), hypomagnesemia, hypokalemia, who presents to the ED with complaints of 2 weeks progressive shortness of breath. Patient states she has dyspnea upon exertion which is not normal for her. Patient states her shortness of breath has led her to feel overall fatigued. She was scheduled for endoscopy this morning so she did not take her daily medications. She states that smokes cigarettes for many years. She denies any other medical complaints at this time. Denies fever, chills, headache, visual disturbances, chest pain, abdominal pain, nausea, vomiting. Differential diagnosis includes COPD exacerbation, pneumonia, pneumothorax, infectious process, among others. Upon arrival she is alert, oriented, hypertensive, tachycardic, afebrile. Physical exam remarkable for mild respiratory distress, bilateral lung sounds tight, expiratory wheezing. Discussed with patient that we will administer DuoNeb, administer her morning blood pressure medication. Hematologic labs reviewed, CBC unremarkable for any leukocytosis, stable H&H. CMP unremarkable for any actionable abnormalities. First troponin < 0.04. BNP 962. VBG pH 7.25, CO2 54.9 lactic 1.8. D-dimer 0.74. Will proceed with CT scan. Chest CTA final read unremarkable for any evidence of pulmonary embolism or aortic dissection. Upon reassessment, patient's condition has improved, she looks significantly better. She is sitting at bedside with her oxygen off, no respiratory distress, sat mid 90s. She is requesting to be discharged home at this time. I discussed with patient that she will need to follow-up with pulmonology. We discussed wearing her oxygen more at home if she is requiring it. Discussed follow-up with PCP. We discussed return precautions to the ED and patient verbalized understanding. She states that she is out of her nebulizer treatments, advised we will treat for COPD exacerbation and I will refill nebulizer. DO Kip: I was consulted by the JENNIFER, and we discussed the complexity of the problems being addressed. I approved the treatment and management plan for this patient's care in the emergency department, thus performing a substantive portion of the medical decision making. Initially, patient looked bad with respiratory acidosis, increased work breathing, hypotension, tachycardia, however after intervention she was feeling a lot better and vital signs normalized. We considered admission for her respiratory acidosis and acute respiratory failure in the setting of COPD, however patient wants to go home. I do not feel this is unreasonable. Second troponin was pending as well as final reassessment at time of signout to oncoming provider, Dr. Adame. Nayla Shin DO <Edmund Adame MD - Last Filed: 08/27/24 16:55> Vital Signs Vital Signs: 08/27/24 12:35 08/27/24 13:03 08/27/24 13:30 Temperature 98 F Temperature Source Oral Pulse Rate 101 H 93 H Pulse Rate [Right] 114 H Respiratory Rate 20 Blood Pressure 220/172 H 127/77 Blood Pressure [Left Arm] 204/113 H Blood Pressure Mean [Left Arm] 143 Blood Pressure Source [Left Arm] Automatic Cuff Blood Pressure Position [Left Arm] Sitting 02 Sat by Pulse Oximetry 92 L 99 98 Oxygen Delivery Method Nasal Cannula Oxygen Flow Rate (LPM) 2 08/27/24 14:30 08/27/24 15:00 08/27/24 15:54 Temperature 98 F Temperature Source Pulse Rate 78 74 80 Pulse Rate [Right] Respiratory Rate 18 Blood Pressure 147/85 H 187/88 H 159/87 H Blood Pressure [Left Arm] Blood Pressure Mean [Left Arm] Blood Pressure Source [Left Arm] Blood Pressure Position [Left Arm] 02 Sat by Pulse Oximetry 99 96 Oxygen Delivery Method Oxygen Flow Rate (LPM) Lab Data Labs: Lab Results 08/27/24 12:40: WBC 9.7, RBC 4.98, Hgb 16.1, Hct 47.4 H, MCV 95.2, MCH 32.3 H, MCHC 34.0, RDW 12.5, Plt Count 338, MPV 9.1, Neut % (Auto) 51.0, Lymph % (Auto) 40.1, [place] % (Auto) 5.8, Eos % (Auto) 2.2, Baso % (Auto) 0.7, Neut # (Auto) 4.9, Lymph # (Auto) 3.9, [place] # (Auto) 0.6, Eos # (Auto) 0.2, Baso # (Auto) 0.1, D-Dimer 0.74 H, VBG pH 7.25 L, VBG pCO2 54.9 H, VBG pO2 35.6, VBG HCO3 23.7, VBG Total CO2 25.4, VBG O2 Saturation 66.8, VBG Base Excess -3.5 L, VBG Lactic Acid 1.8, Sodium 141, Potassium 4.4, Chloride 109 H, Carbon Dioxide 25, Anion Gap 11.4, BUN 21 H, Creatinine 1.00, Estimated Creat Clear 44, Estimated GFR 55 L, Est GFR ( Amer) 66, Glucose 122 H, Calcium 11.0 H, Total Bilirubin 0.8, AST 34, ALT 24, Alkaline Phosphatase 108, Troponin I 0.04 H, NT-Pro-B Natriuret Pep 962 H, Total Protein 7.9, Albumin 4.8, Globulin 3.1, Albumin/Globulin Ratio 1.5 08/27/24 13:56: VBG pH 7.29 L, VBG pCO2 40.5, VBG pO2 45.7 H, VBG HCO3 18.9 L, VBG Total CO2 20.2 L, VBG O2 Saturation 79.8 H, VBG Base Excess -7.7 L, VBG Lactic Acid 1.1 08/27/24 15:13: Troponin I 0.04 H Response Orders (Tests/Meds): ED MEDICATIONS Discontinued Medications Generic Name Dose Route Start Last Admin Trade Name Freq PRN Reason Stop Dose Admin Albuterol/Ipratropium 3 ml 08/27/24 12:37 08/27/24 12:47 Ipratropium/Albuterol 3 Ml Neb IH 08/27/24 12:38 3 ml ONCE ONE Administration Iopamidol 70 ml 08/27/24 14:01 08/27/24 14:02 Iopamidol-370 (76%);100ml Bottle IV 08/27/24 14:02 70 ml ONCE ONE Administration Irbesartan 75 mg 08/27/24 13:19 08/27/24 14:04 Irbesartan 75mg Tablet PO 08/27/24 13:20 75 mg ONCE ONE Administration Methylprednisolone Sodium Succinate 125 mg 08/27/24 14:20 08/27/24 14:26 Methylprednisolone Sod Succ 125mg Vial IV 08/27/24 14:21 125 mg ONCE ONE Administration Sodium Chloride 10 ml 08/27/24 14:01 08/27/24 14:02 Sodium Chloride 0.9% 10ml Syr (Rad Only) IV 08/27/24 14:02 10 ml ONCE ONE Administration Sodium Chloride 50 ml 08/27/24 14:01 08/27/24 14:02 0.9 % Sodium Chloride 50 Ml Vial IV 08/27/24 14:02 50 ml ONCE ONE Administration ORDERS Category Date Time Status CT angio chest PE protocol Stat Cat Scan 08/27/24 13:22 Completed CXR --portable [XR chest portable] Stat Exams 08/27/24 12:37 Completed BNP [NT Pro Brain Natriuretic Pep.] Stat Lab 08/27/24 12:40 Completed CBC w/Auto Diff [Complete Blood Count Auto Diff] Stat Lab 08/27/24 12:40 Completed CMP [Comprehensive Metabolic Panel] Stat Lab 08/27/24 12:40 Completed D-Dimer Stat Lab 08/27/24 12:40 Completed Trop I [Troponin I] Stat Lab 08/27/24 12:40 Completed Troponin I Q3H Lab 08/27/24 15:13 Completed VBG [Venous Blood Gas] Stat RT 08/27/24 12:40 Completed VBG [Venous Blood Gas] Stat RT 08/27/24 13:56 Completed MDM Narrative Medical Decision Narrative: In summary, patient is a 69-year-old female PMHx COPD (2L NC prn), hypomagnesemia, hypokalemia, who presents to the ED with complaints of 2 weeks progressive shortness of breath. Patient states she has dyspnea upon exertion which is not normal for her. Patient states her shortness of breath has led her to feel overall fatigued. She was scheduled for endoscopy this morning so she did not take her daily medications. She states that smokes cigarettes for many years. She denies any other medical complaints at this time. Denies fever, chills, headache, visual disturbances, chest pain, abdominal pain, nausea, vomiting. Differential diagnosis includes COPD exacerbation, pneumonia, pneumothorax, infectious process, among others. Upon arrival she is alert, oriented, hypertensive, tachycardic, afebrile. Physical exam remarkable for mild respiratory distress, bilateral lung sounds tight, expiratory wheezing. Discussed with patient that we will administer DuoNeb, administer her morning blood pressure medication. Hematologic labs reviewed, CBC unremarkable for any leukocytosis, stable H&H. CMP unremarkable for any actionable abnormalities. First troponin < 0.04. Second trop < 0.04. BNP 962. VBG pH 7.25, CO2 54.9 lactic 1.8. D-dimer 0.74. Will proceed with CT scan. Chest CTA final read unremarkable for any evidence of pulmonary embolism or aortic dissection. Upon reassessment, patient's condition has improved, she looks significantly better. She is sitting at bedside with her oxygen off, no respiratory distress, sat mid 90s. She is requesting to be discharged home at this time. I discussed with patient that she will need to follow-up with pulmonology. We discussed wearing her oxygen more at home if she is requiring it. Discussed follow-up with PCP. We discussed return precautions to the ED and patient verbalized understanding. She states that she is out of her nebulizer treatments, advised we will treat for COPD exacerbation and I will refill nebulizer. DO Kip: I was consulted by the JENNIFER, and we discussed the complexity of the problems being addressed. I approved the treatment and management plan for this patient's care in the emergency department, thus performing a substantive portion of the medical decision making. Initially, patient looked bad with respiratory acidosis, increased work breathing, hypotension, tachycardia, however after intervention she was feeling a lot better and vital signs normalized. We considered admission for her respiratory acidosis and acute respiratory failure in the setting of COPD, however patient wants to go home. I do not feel this is unreasonable. Second troponin was pending as well as final reassessment at time of signout to oncoming provider, Dr. Adame. Nayla Shin DO I was consulted by the JENNIFER, and we discussed the complexity of the problems being addressed. I approved the treatment and management plan for this patient's care in the Emergency Department, thus performing a substantive portion of the medical decision making. Very clinically well, states she is currently asymptomatic. Vitals have improved, independent interpretation of workup largely nonactionable. Troponin flat at 0.04, BNP newly elevated at 962, but chest x-ray without acutely fluid overloaded state. Edmund Adame MD
[2024-08-27 13:07] LABS: Glucose 122 mg/dl (74-100)
[2024-08-27 13:08] LABS: Lactate Venous 1.8 mmol/L (0.4-2.0); VBG Base Excess -3.5 mmol/L (-2.4-2.3); VBG HCO3 23.7 mmol/L (23-30); VBG Oxygen Saturation 66.8 % (50-70); VBG PH 7.25 mmol/L (7.31-7.41); VBG PO2 35.6 mmol/L (28-40); VBG Total CO2 25.4 mmol/L (23-27)
[2024-08-27 13:10] LABS: VBG PCO2 54.9 mmol/L (35-51)
[2024-08-27 13:16] LABS: NT Pro Brain Natriuretic Pep. 962 pg/mL (0-125)
[2024-08-27 13:18] LABS: D-Dimer 0.74 ug/mL (0.0-0.5); Troponin I 0.04 ng/ml (0.00-0.034)
--- NOTE | 2024-08-27 13:22 | CT_ITS ---
FINAL REPORT TECHNIQUE: Axial imaging of the chest is obtained after the administration of contrast. 3-D MIP reformatted images were also obtained and reviewed per PE protocol. This study was performed with techniques to keep radiation doses as low as reasonably achievable (ALARA). Individualized dose reduction techniques using automated exposure control or adjustment of mA and/or kV according to the patient's size were employed. CLINICAL HISTORY: SOA COMPARISON: LDCT 09/08/2023 FINDINGS: The pulmonary arteries are well filled. There is no evidence of pulmonary embolus. There is no aortic dissection. Heart size is normal. There is no mediastinal, hilar, or axillary lymphadenopathy. The lungs are clear. There is no pleural or pericardial effusion. The previously seen right lower lobe lobe nodule, seen on the prior LDCT of 09/08/2023, is not identified. Limited evaluation of the upper abdomen is without acute abnormality. No acute osseous abnormality. IMPRESSION: No evidence of pulmonary embolism or aortic dissection. Previously seen right lower lobe nodule is not identified from the prior LDCT of 09/08/2023. Reviewed, Interpreted and Dictated by Ching Lindsay MD Transcribed by Genet Bryant Authenticated and [facility]
[2024-08-27 13:27] LABS: Blood Urea Nitrogen 21 mg/dl (7-17); Creatinine Clearance Estimated 44 mL/min (50-200); Estimated Glomerular Filt Rate 55 ml/min (>60); GFR (African American) 66 ML/MIN (>60)
[2024-08-27 13:30] VITALS: BP 127/77; PULSE 93; O2SAT 98
[2024-08-27] MEDS: IOPAMIDOL-370 (76%);100ML BOTTLE 70 ML IV (14:02)
[2024-08-27] MEDS: 0.9 % SODIUM CHLORIDE 50 ML VIAL IV (14:02)
[2024-08-27] MEDS: SODIUM CHLORIDE 0.9% 10ML SYR (RAD ONLY) 10 ML IV (14:02)
[2024-08-27] MEDS: IRBESARTAN 75MG TABLET 75 MG PO (14:04)
[2024-08-27 14:08] LABS: Lactate Venous 1.1 mmol/L (0.4-2.0); VBG Base Excess -7.7 mmol/L (-2.4-2.3); VBG HCO3 18.9 mmol/L (23-30); VBG Oxygen Saturation 79.8 % (50-70); VBG PCO2 40.5 mmol/L (35-51); VBG PH 7.29 mmol/L (7.31-7.41); VBG PO2 45.7 mmol/L (28-40); VBG Total CO2 20.2 mmol/L (23-27)
[2024-08-27] MEDS: METHYLPREDNISOLONE SOD SUCC 125MG VIAL 125 MG IV (14:26)
[2024-08-27 14:30] VITALS: BP 147/85; PULSE 78; O2SAT 99
[2024-08-27 15:00] VITALS: BP 187/88; PULSE 74; O2SAT 96
[2024-08-27 15:39] LABS: Troponin I 0.04 ng/ml (0.00-0.034)
[2024-08-27 15:54] VITALS: BP 159/87; PULSE 80; RESP 18; TEMP 36.6
== END 2024-08-27 15:54 | disposition home or self-care (01) ==
PROVIDERS: Nurse Practitioner; Emergency Provider Emergency Medicine; PCP Nurse Practitioner Family
DX: J44.1 Chronic obstructive pulmonary disease with (acute) exacerbation (principal); E87.29 Other acidosis; R00.0 Tachycardia, unspecified; F17.210 Nicotine dependence, cigarettes, uncomplicated
CPT/HCPCS: 71045; 71275; 80053; 82803; 83880; 84484; 85025; 85378; 96374; 99285; J2919; Q9967

== ENCOUNTER 2024-10-14 08:19 | Outpatient (CLI) | payer MEDICARE, OTHER, SELFPAY ==
--- OUTSIDE RECORDS SUMMARY | 2024-09-06 10:45 | XMS_ITS ---
Author Organization [facility] [place] Address [address] [place] [address] Care Team Providers Care Sprinkler Repair Technician Name Role Phone Alejo Joseph Primary Care Provider Carolyn Granda Unavailable [phone] Allergies Allergen (clinical drug ingredient) Drug/Non Drug Allergy documented on EMR Reaction Allergy Type Onset Date Status ADVAIR (uncoded) Unknown Allergy Act radha DURAGESIC (uncoded) Unknown Allergy Active diltiazem Cardizem Unknown Drug Allergy Active Reason For Referral Reason Nebulizer and tubing to [facility] Diagnosis 1 COPD exacerbation (J 44.1) Referral Organization [facility] Referring Provider First Name Carolyn Referring Provider Last Name Kalee Referring Provider Speciality [facility] General Notes Maurizio Hopkins 04:46:11 PM > done on parachute Referral Priority Routine REASON FOR VISIT ER F/U Breathing Issues-dx with acute respiratory? Medications Medication SIG (Take, Route, Frequency, Duration) Notes Start Date End Date Status Losartan Potassium 100 MG 1 tablet Orally Once a day; Duration: 90 days 09/06/2024 Active Cefdinir 300 MG 300 mg Orally 2 times a day; Duration: 7 days 09/06/2024 Active Gabapentin 400 mg TAKE ONE CAPSULE BY MOUTH THREE TIMES DAILY MAY CAUSE DROWSINESS; Duration: 30 07/30/2024 Active Jardiance 10 MG 1 tablet Orally Once a day; Duration: 30 days 08/20/2024 Active Breztri Aerosphere 160-9-4.8 MCG/ACT INHALE TWO PUFFS BY MOUTH TWICE DAILY; Duration: 30 Active ALBUTEROL (EQV-VENTOLIN HFA) 90 MCG/INH INHALE TWO PUFFS BY MOUTH EVERY 6 HOURS PRN FOR SHORTNESS OF BREATH; Duration: 30 DAYS *Please review for potential replacement for e-prescription and drug interaction check* Active traMADol HCl 50 MG 1 tab(s) orally three times daily; Duration: 30 days 07/05/2024 Active Propranolol HCl 10 MG 1 tab(s) orally 2 times a day for tremor; Duration: 30 days Active Crestor 10 MG 1 tab(s) orally once a day; Duration: 90 days Active Escitalopram Oxalate 20 MG 1 tab(s) orally once a day; Duration: 90 days Active Albuterol Sulfate (2.5 MG/3ML) 0.083% 3 mL by nebulizer every 6 hours as needed for shortness of breath; Duration: 30 days DX: J44.9 Active Omeprazole 40 MG 1 cap(s) orally once a day; Duration: 90 days Active NEBULIZER KIT -; Duration: 30 DAY(S) *Please review for potential replacement for e-prescription and drug interaction check* 05/15/2018 Active Social History Tobacco Use: Social History Observation Description Date Details (start date - stop date) Current Smoker NA - NA Smoking: Question Answer Notes Are you a: current smoker How often do you smoke cigarettes? every day How many cigarettes a day do you smoke? 21-30 Vital Signs Temperature 97.8 degrees Fahrenheit 09/07/19 25 Blood pressure systolic 180 mm Hg 09/07/19 25 Blood pressure diastolic 80 mm Hg 025 Heart Rate 94 /min 09/06/2024 Height 64.5 in 09/06/2024 Weight 118.4 lbs 09/06/2024 BMI 20.01 kg/m2 09/06/2024 Encounters Encounter Location Date Provider Diagnosis [facility] [place] [address] [facility] [address] [place] [address] 09/06/2024 Carolyn Granda COPD exacerbation J44.1 ; Essential hypertension I10 and Tobacco use Z72.0 Assessments Encounter Date Diagnosis (ICD Code) Assessment Notes Treatment Notes Treatment Clinical Notes Section Notes 09/06/2024 COPD exacerbation (ICD-10 - J44.1) treated with zitrhomax only, rec addition of cefdinir. continue Breztri with nebulizer as needed. Strongly encouraged smoking cessation t 09/06/2024 Essential hypertension (ICD-10 - I10) t 09/06/2024 Tobacco use (ICD-10 - Z72.0) t Plan Of Treatment Medication Medication Name Sig Start Date Stop Date Notes Losartan Potassium 100 MG 1 tablet Orall y Once a day; Duration: 90 days 09/06/2024 Cefdinir 300 MG 300 mg Orally 2 time s a day; Duration: 7 days 09/06/2024 Losartan Potassium 50 MG 1 tab(s) orally once a day 2024 Albuterol Sulfate (2.5 MG/3ML) 0.083% 3 mL by nebulizer every 6 hours as needed for shortness of breath; Duration: 30 days DX: J44.9 Referrals Referral Date Details 09/06/2024 09/06/2024, Nebulize r and tubing to [facility] Next Appt Details Follow Up: 3 Weeks, Reason: BP Provider Name:Carolyn العلي, 10/18/2024 12:45:00 PM, [address], [address], [place], [address], Provider Name:Carolyn العلي, 11/15/2024 02:00:00 PM, [address], [address], [place], [address], Progress Notes * Sulma ALMODOVARDOB:[birth year] (69 yo F)Acc No.[id number]:09/06/2024 Progress Notes Patient: Erick ARGUELLOSulma Provider: DANIKA Hdz :1955 A ge:69 Y S ex:Female Date:09/06/2024 Address:[address] [place] [address], [address], [id number] Pcp:Alejo Joseph Subjective: * Chief Complaints: * 1 . ER F/U Breathing Issues-dx with acute respiratory?. * HPI: g en: 69 yr old female with COPD and continued tobacco abuse presents with sister to FU regarding recent ED visit with acute respiratory symptoms including cough and SOA above baseline. Dx with respiratory acidosis and has questions about this diagnosis. Started on oral antibiotics, steroids and discharged home. Denies fevers and does note some improvement in her cough and SOA. Smoking less. She is using her Breztri routinely and nebulizer as needed but using her sister's machine. * ROS: C ONSTITUTIONAL: no L oss of appetite. n o F ever. D ERMATOLOGY: no R charmaine. G ASTROENTEROLOGY: Reviewed, No Symptoms Reported: Y es. N EUROLOGY: Positive for h as appt with neurology in November to discuss memory/tremor. * Medical History: D DD, Hypercholestrolemia, TIA, Gerd, Carotid artery stenosis, 20% right, Depression, Chronic arthritis pain, Edema, Urinary bladder cancer, Copd, Tobacco addiction, Abdominal hernia, ventral, Osteopenia - DEXA in 2009, PVD, Type 2 Diabetes, max A1C 6.6%, on metformin. * Surgical History: T j luis 1978. * Hospitalization/Major Diagno stic Procedure: Juliet baxter Past Hospitalization. * Family History: F ather: , alcoholic-cirrhosis. M other: , [place], diabetes, Hyperlipidemia, HTN. P aternal Grand Father: . P aternal Grand Mother: . M aternal Grand Father: . M aternal Grand Mother: . P aternal uncle: . P aternal aunt: . M aternal uncle: . M aternal aunt: . S dariana: alive, 1 sister pancreatic cancer1 brother -heart issues, 1 brother from cancer, diagnosed with Mental Illness. C rowdy: alive, daughter-thyroidectomy. 7 brother(s) , 2 sister(s) . 1 son(s) , 1 daughter(s) - healthy. . * Social History: S moking A re you a: c urrent smoker, H ow often do you smoke cigarettes? e very day, H ow many cigarettes a day do you smoke? 2 1-30. R ecreational drug use: no. Exercise: no. Home smoke detector use: yes. Caffeine: yes, frequency:2+ cups a day. Living Will: No, Daughter Zulema Mcnally would make decisions, would not want to be maintained on life support if minimal likelihood of meaningful recovery. Alcohol: no. Sexually active: yes. Travel outside [place]: no. Occupation: disabled. * Medications: T aking NEBULIZER KIT - , Notes to Pharmacist: *Please review for potential replacement for e-prescription and drug interaction check*, Taking Omeprazole 40 MG Capsule Delayed Release 1 cap(s) orally once a day , Taking Escitalopram Oxalate 20 MG Tablet 1 tab(s) orally once a day , Taking ALBUTEROL (EQV-VENTOLIN HFA) 90 MCG/INH AEROSOL INHALE TWO PUFFS BY MOUTH EVERY 6 HOURS PRN FOR SHORTNESS OF BREATH , Notes to Pharmacist: *Please review for potential replacement for e-prescription and drug interaction check*, Taking Losartan Potassium 50 MG Tablet 1 tab(s) orally once a day , Taking Albuterol Sulfate (2.5 MG/3ML) 0.083% Nebulization Solution 3 mL by nebulizer every 6 hours prn , Notes to Pharmacist: DX: J44.9, Taking Crestor 10 MG Tablet 1 tab(s) orally once a day , Taking Propranolol HCl 10 MG Tablet 1 tab(s) orally 2 times a day for tremor , Taking traMADol HCl 50 MG Tablet 1 tab(s) orally three times daily , Taking Gabapentin 400 mg Capsule TAKE ONE CAPSULE BY MOUTH THREE TIMES DAILY MAY CAUSE DROWSINESS , Taking Breztri Aerosphere 160-9-4.8 MCG/ACT Aerosol INHALE TWO PUFFS BY MOUTH TWICE DAILY , Taking Jardiance 10 MG Tablet 1 tablet Orally Once a day , Medication List reviewed and reconciled with the patient * Allergies: D URAGESIC, Cardizem, ADVAIR. Objective: * Vitals: N urse: jl, Pain: 0, Temp: 97.8, RR: 20, HR: 94, BP: 180/80, Ht: 64.5, Wt: 118.4, BMI:20.01. * Examination: G eneral Examination: General P leasant and Cooperative, NAD on RA,. Heart: R egular Rate and Rhythm, no murmur, rubs or gallops. Lungs: d iffuse rhonchi, congested cough. Abdomen: s oft, NT/ND, BS present. Neurologic Exam: A lert and oriented x 3. Skin: w ithout acute rashes. Extremities: n o clubbing, no edema,. Psych N ormal Mood/Affect. Assessment: * Assessment: 1. C OPD exacerbation - J44.1 (Primary) 2 . E ssential hypertension - I10? 3. T obacco use - Z72.0 t Plan: * Treatment: 2. E ssential hypertension Start Losartan Potassium Tablet, 100 MG, 1 tablet, Orally, Once a day, 90 days, 90 Tablet, Refills 1. * Procedure Codes: 1 111F DSCHR MED/CURENT MED MERGE * Follow Up: 3 Weeks (Reason: BP) * * Sign off status: Completed true * Provider: DANIKA Hdz Date: 0 09/06/2024 Generated for Saniya coronado/Rashaun/Diyaitting on: 0 10/14/2024 08:23 AM EDT History and Physical Notes * Examination Category Sub-Category Detail Notes Category Not es General Examination Heart: Regular Rate and Rhythm, no murmur, rubs or gallops Lungs: diffuse rhonchi, con gested cough Abdomen: soft, NT/ND, BS pres ent Extremities: no clubbing, no wilber a, Skin: without acute rashes Neurologic Exam: Alert and oriented x 3 General Pleasant and Coopera tive, NAD on RA, Psych Normal Mood/Affect Consultation Request Notes Referral Date Referring Provider Referred Provider Not es 09/06/2024 Carolyn Granda , Nebulizer an d tubing to [facility]
--- OUTSIDE RECORDS SUMMARY | 2024-09-27 10:30 | XMS_ITS ---
Author Organization [facility] [place] Address [address] [facility] [address] [place] [address] Care Team Providers Care Last Inserter Name Role Phone Alejo Joseph Primary Care Provider Carolyn Granda Unavailable [phone] Allergies Allergen (clinical drug ingredient) Drug/Non Drug Allergy documented on EMR Reaction Allergy Type Onset Date Status ADVAIR (uncoded) Unknown Allergy Act radha DURAGESIC (uncoded) Unknown Allergy Active diltiazem Cardizem Unknown Drug Allergy Active Reason For Referral Reason carotid dopplers r enal artery duplex echo Diagnosis 1 Essential hypertensi on (I10) Referral Organization [facility] Referring Provider First Name Carolyn Referring Provider Last Name Kalee Referring Provider Speciality [facility] Referred Organization [facility] Referred Address [address] [place] [address] [address] [facility], [place],[address], Referred Provider Specialty Diagnostic R adiology General Notes GersonMilka 2024 04:14:52 PM >sent to [facility] to schedule appt Referral Priority Routine REASON FOR VISIT 3 wk FU, states that she is having a hard time remembering things Medications Medication SIG (Take, Route, Frequency, Duration) Notes Start Date End Date Status Losartan Potassium 100 MG 1 tablet Orall y Once a day; Duration: 90 days 09/06/2024 Active Omeprazole 40 MG 1 cap(s) orally once a day; Duration: 90 days Active NEBULIZER KIT -; Duration: 30 DAY(S) *Please review for potential replacement for e-prescription and drug interaction check* 05/15/2018 Active Gabapentin 300 MG 1 capsule Orally 3 times a day; Duration: 30 days 09/27/2024 Active hydroCHLOROthiazide 12.5 MG 1 tablet in the morning Orally Once a day; Duration: 30 days 09/27/2024 Active Albuterol Sulfate (2.5 MG/3ML) 0.083% 3 mL by nebulizer every 6 hours as needed for shortness of breath; Duration: 30 days DX: J44.9 Active traMADol HCl 50 mg TAKE ONE TABLET BY MOUTH THREE TIMES DAILY MAY CAUSE DROWSINESS; Duration: 30 09/12/2024 Active Propranolol HCl 10 mg TAKE ONE TABLET BY MOUTH TWICE DAILY FOR TREMOR; Duration: 30 Active Albuterol Sulfate HFA 108 (90 Base) MCG/ACT 2 puffs Inhalation every 4 hrs; Duration: 30 days As needed Active Breztri Aerosphere 160-9-4.8 MCG/ACT INHALE TWO PUFFS BY MOUTH TWICE DAILY; Duration: 30 Active Crestor 10 MG 1 tab(s) orally once a day; Duration: 90 days Active Escitalopram Oxalate 20 MG 1 tab(s) orally once a day; Duration: 90 days Active Jardiance 10 MG 1 tablet Orally Once a day; Duration: 30 days 08/20/2024 Active Social History Tobacco Use: Social History Observation Description Date Details (start date - stop date) Current Smoker NA - NA Smoking: Question Answer Notes Are you a: current smoker How often do you smoke cigarettes? every day How many cigarettes a day do you smoke? 21-30 Vital Signs Temperature 97.9 degrees Fahrenheit 09/28/19 25 Blood pressure systolic 184 mm Hg 09/28/19 25 Blood pressure diastolic 72 mm Hg 025 Heart Rate 80 /min 09/27/2024 Height 64.5 in 09/27/2024 Weight 119.2 lbs 09/27/2024 BMI 20.14 kg/m2 09/27/2024 Encounters Encounter Location Date Provider Diagnosis [facility] [place] [address] [facility] [address] [place] [address] 09/27/2024 Carolyn Granda Type 2 diabetes mellitus without complication, without long-term current use of insulin E11.9 ; Stage 3b chronic kidney disease (CKD) N18.32 ; Essential hypertension I10 ; Cognitive impairment R41.89 and Multilevel degenerative disc disease M53.9 Assessments Encounter Date Diagnosis (ICD Code) Assessment Notes Treatment Notes Treatment Clinical Notes Section Notes 09/27/2024 Type 2 diabetes mellitus without complication, without long-term current use of insulin (ICD-10 - E11.9) 09/27/2024 Stage 3b chronic kidney disease (CKD) (ICD-10 - N18.32) 09/27/2024 Essential hypertension (ICD-10 - I10) 09/27/2024 Cognitive impairment (ICD-10 - R41.89) 09/27/2024 Multilevel degenerative disc disease (ICD-10 - M53.9) Plan Of Treatment Medication Medication Name Sig Start Date Stop Date Notes Gabapentin 400 mg TAKE ONE CAPSULE BY MOUTH THREE TIMES DAILY MAY CAUSE DROWSINESS 07/30/2024 Losartan Potassium 100 MG 1 tablet Orall y Once a day; Duration: 90 days 09/06/2024 Gabapentin 300 MG 1 capsule Orally 3 t imes a day; Duration: 30 days 09/27/2024 hydroCHLOROthiazide 12.5 MG 1 tablet in the morning Orally Once a day; Duration: 30 days 09/27/2024 Referrals Referral Date Details 09/27/2024 09/27/2024, carotid dopplers renal artery duplex echo, [address] [place] [facility] [address] [facility] [place], [address], Next Appt Details Follow Up: 2-3 weeks, Reason : Provider Name:Carolyn العلي, 10/18/2024 12:45:00 PM, [address] [facility] [address] [facility], [address], [place], [address], Provider Name:Carolyn العلي, 11/15/2024 02:00:00 PM, [address] [facility] [address] [facility], [address], [place], [address], Progress Notes * Sulma ALMODOVARDOB:[birth year] (69 yo F)Acc No.[id number]:09/27/2024 Progress Notes Patient: Erick ARGUELLO Sulma Hernandez Provider: DANIKA Hdz :1955 A ge:69 Y S ex:Female Date:09/27/2024 Address:[address] [place] [address], [address], [id number] Pcp:Alejo Joseph Subjective: * Chief Complaints: * 1 . 3 wk FU. 2. States that she is having a hard time remembering things. * Medical History: D DD, Hypercholestrolemia, TIA, Gerd, Carotid artery stenosis, 20% right, Depression, Chronic arthritis pain, Edema, Urinary bladder cancer, Copd, Tobacco addiction, Abdominal hernia, ventral, Osteopenia - DEXA in 2009, PVD, Type 2 Diabetes, max A1C 6.6%, on metformin. * Surgical History: T ubal 1978. * Hospitalization/Major Diagno stic Procedure: D enies Past Hospitalization. * Family History: F ather: , alcoholic-cirrhosis. M other: , [place], diabetes, Hyperlipidemia, HTN. P aternal Grand Father: . P aternal Grand Mother: . M aternal Grand Father: . M aternal Grand Mother: . P aternal uncle: . P aternal aunt: . M aternal uncle: . M aternal aunt: . S iblings: alive, 1 sister pancreatic cancer1 brother -heart [...] tab(s) orally once a day , Taking Crestor 10 MG Tablet 1 tab(s) orally once a day , Taking Gabapentin 400 mg Capsule TAKE ONE CAPSULE BY MOUTH THREE TIMES DAILY MAY CAUSE DROWSINESS , Taking Breztri Aerosphere 160-9-4.8 MCG/ACT Aerosol INHALE TWO PUFFS BY MOUTH TWICE DAILY , Taking Jardiance 10 MG Tablet 1 tablet Orally Once a day , Taking Losartan Potassium 100 MG Tablet 1 tablet Orally Once a day , Taking Albuterol Sulfate (2.5 MG/3ML) 0.083% Nebulization Solution 3 mL by nebulizer every 6 hours as needed for shortness of breath , Notes to Pharmacist: DX: J44.9, Taking Albuterol Sulfate HFA 108 (90 Base) MCG/ACT Aerosol Solution 2 puffs Inhalation every 4 hrs As needed, Taking Propranolol HCl 10 mg Tablet TAKE ONE TABLET BY MOUTH TWICE DAILY FOR TREMOR , Taking traMADol HCl 50 mg Tablet TAKE ONE TABLET BY MOUTH THREE TIMES DAILY MAY CAUSE DROWSINESS , Discontinued Cefdinir 300 MG Capsule 300 mg Orally 2 times a day , Medication List reviewed and reconciled with the patient * Allergies: D URAGESIC, Cardizem, ADVAIR. Objective: * Vitals: N urse: jl, Pain: 0, Temp: 97.9, RR: 18, HR: 80, BP: 184/72, Ht: 64.5, Wt: 119.2, BMI:20.14. Assessment: * Assessment: 1. T ype 2 diabetes mellitus without complication, without long-term current use of insulin - E11.9 2 . S tage 3b chronic kidney disease (CKD) - N18.32 3 .?Essential hypertension - I10 4 . C ognitive impairment - R41.89 5. M ultilevel degenerative disc disease - M53.9 Plan: * Treatment: 2. M ultilevel degenerative disc disease Stop Gabapentin Capsule, 400 mg, TAKE ONE CAPSULE BY MOUTH THREE TIMES DAILY MAY CAUSE DROWSINESS; S tart Gabapentin Capsule, 300 MG, 1 capsule, Orally, 3 times a day, 30 days, 90 Capsule, Refills 1. * Follow Up: 2 -3 weeks * * Electronic signature of Mira Granda APRN on 10/14/2024 at 08:22 AM EDT Sign off status: Pending * Provider: DANIKA Hdz Date: 0 09/27/2024 Generated for Saniya coronado/Rashaun/Jessica on: 0 10/14/2024 08:22 AM EDT Consultation Request Notes Referral Date Referring Provider Referred Provider Not es 09/27/2024 Carolyn Granda , carotid dopp lers renal artery duplex echo
--- OUTSIDE RECORDS SUMMARY | 2024-09-27 12:10 | XMS_ITS ---
Author Organization [facility] [place] Address [address] [facility] [address] [place], [place] [address] Care Team Providers Care Supervisor Soakers Name Role Phone Alejo Joseph Primary Care Provider Kalee Carolyn [facility] [phone] Encounters Encounter Location Date Provider Diagnosis [facility] [address] [facility] [address] [place], [place] [address] 09/27/2024 Carolyn Granda Essential hypertensi on I10 Assessments Encounter Date Diagnosis (ICD Code) Assessment Notes Treatment Notes Treatment Clinical Notes Section Notes 09/27/2024 Essential hypertension (ICD-10 - I10) Plan Of Treatment Pending Test Test Name Order Date Echocardiogram 09/27/2024 ARTERIAL RENAL DOPPLER 09/27/2024 CAROTID DUPLEX 09/27/2024 Next Appt Details Provider Name:Carolyn Bruce Aracelivern ce, 10/18/2024 12:45:00 PM, [address], [address], [place], [address], Provider Name:Carolyn Fischer zohra, 11/15/2024 02:00:00 PM, [address], [address], [place], [place], [address], Progress Notes * Sulma ALMODOVARDOB:[birth year] (69 yo F)Acc No.[id number]:09/27/2024 Patient: Sulma SANTOS :1955 A ge:69 Y S ex:Female Address:[address] [place] [address], [address], [place] [address] Subjective: * Chief Complaints: * * Medical History: * Surgical History: * Hospitalization/Major Diagno stic Procedure: * Medications: Objective: * Vitals: * Physical Examination: Assessment: * Assessment: 1. E ssential hypertension - I10 Plan: * Treatment: * ?Imaging: ARTERIAL RENAL DOPPLER* Milka Nieto 09/27/2024 04: 13:15 PM EDT > No Precert needed * ?Imaging: CAROTID DUPLEX* Milka Nieto 09/27/2024 04: 13:06 PM EDT > No Precert needed * * Procedure Codes: * true * Date: Generated for Saniya coronado/Rashaun/Diyaitting on: 0 10/14/2024 08:23 AM EDT
--- NOTE | 2024-10-14 | CA_ITS ---
FINAL REPORT CLINICAL HISTORY: HTN COMPARISON: None FINDINGS: DOPPLER RENAL VESSELS HISTORY: Hypertension . FINDINGS: Intrarenal resistive indices on the right are 0.80-0.82, borderline elevated. Intrarenal resistive indices on the left are 0.76-0.83, borderline elevated. Borderline elevation can be seen with medical renal disease. Right main renal artery systolic velocity: 165 cm/sec. Aortic-right renal artery flow velocity ratio: 1.9 COMMENT: No evidence of hemodynamically significant renal artery stenosis . Left main renal artery systolic velocity: 115 cm/sec. Aortic-left renal artery flow velocity ratio: 1.3 COMMENT: No evidence of hemodynamically significant renal artery stenosis . IMPRESSION: 1. No evidence of hemodynamically significant renal artery stenosis. 2. Borderline elevation of the resistive indices bilaterally, that may be seen with medical renal disease. CTA or gadolinium-enhanced MR may be considered as a more sensitive exam. Alternatively noncontrast MRI may be considered for assessing main renal arteries for stenosis as a more sensitive exam if the patient has renal insufficiency. Reviewed, Interpreted and Dictated by Crow De Souza MD Transcribed by Genet Bryant Authenticated and [facility]
--- NOTE | 2024-10-14 | CA_ITS ---
APPROVED REPORT EXAM: Comprehensive 2D, Doppler, and color-flow Echocardiogram Tufter: Bridgette Chin CRT Ht: 5 ft 4 in Wt: 119lbs BSA: 1.57 BP: 127/77 mmHg Indications: CVA/TIA, Hyperlipidemia, Hypertension/HDD, smoker 2D Dimensions LA Volume 21.50 mL LA Volume Index 13.40 mL/m2 (M/F) 16-34 M-Mode Dimensions RVDd 2.27 cm (0.9-2.6) LA Diam 2.93 cm (1.9-4.0) LVDd 3.37 cm (3.5-5.7) LVDs 1.95 cm (3.5-5.7) IVSd 1.40 cm (0.6-1.1) PWd 0.52 cm (0.6-1.1) EF (Teich) 74.40% FS 42.10% EDV (Teich) 46.40 mL TAPSE 1.78 (<1.7) ESV (Teich) 11.90 mL LV Diastology E Decel Time 180 (160-240 msec) E/A Ratio 0.83 MED A' 9.60 cm/s LAT A' 10.20 cm/s Aortic Valve AO Peak GR. 4.10 mmHg Mitral Valve MV E Max Dani. 66.0 (40-130 cm/s) MV A Velocity 79.0 (40-130 cm/s) E/A Ratio 0.83 MV PHT 53.0 ms Pulmonary Valve PV Peak Velocity 70.0 (50-150 cm/s) Tricuspid Valve TR P. Velocity 295.00 cm/s RAP Estimate 10.00 mmHg RVSP 44.80 mmHg Left Ventricle The left ventricle is normal size. The left ventricular systolic function is normal. The left ventricular ejection fraction is within the normal range. Proximal septal thickening is present. There is normal LV segmental wall motion. The left ventricular diastolic function is normal. LVEF is 55%. Right Ventricle The right ventricle is normal size. The right ventricular systolic function is normal. Atria The left atrium size is normal. The right atrium size is normal. There is no Doppler evidence of interatrial shunt. Aortic Valve The aortic valve is mildly thickened. There is no aortic valvular stenosis. No aortic regurgitation is present. Mitral Valve The mitral valve is normal in structure. No evidence of mitral valve stenosis. Mild mitral regurgitation. Tricuspid Valve Tricuspid valve is grossly normal in structure and function. Trace tricuspid regurgitation. There is insufficient TR jet to estimate RVSP. Pulmonic Valve The pulmonary valve is normal in structure. Trace pulmonic regurgitation. Great Vessels The aortic root is normal in size. IVC is normal in size and collapses >50% with inspiration. Pericardium There is no pericardial effusion. Other Information Study Quality: Fair Conclusion Normal biventricular systolic function. Mild MR. Electronically signed by : Vanesa Whaley MD 10/20/2024 12:31:52
--- NOTE | 2024-10-14 | CA_ITS ---
FINAL REPORT CLINICAL HISTORY: HTN, smoker, Hyperlipidemia, hx TIA's COMPARISON: None FINDINGS: RIGHT CAROTID: CCA PSV -58 cm/sec ICA PSV -130 cm/sec ICA/CCA PSV ratio -2.24. Comments: Mild plaque disease is noted. LEFTCAROTID: CCA PSV -61. cm/sec ICA PSV -126. cm/sec ICA/CCA PSV ratio -2.1. Comments: Mild plaque disease is noted. Antegrade flow is seen within the vertebral arteries. IMPRESSION: Carotid stenosis classified less than 50% Reviewed, Interpreted and Dictated by Crow De Souza MD Transcribed by Genet Bryant Authenticated and [facility]
--- OUTSIDE RECORDS SUMMARY | 2024-10-14 08:22 | XMS_ITS | Encounter Summary ---
Author Organization [employer] [facility] Address [address] [place] [address] Care Team Providers Care Segregator Name Role Phone Unavailable Primary Care Provider Unavailabl e Encounter Details Date Type Department Care Team (Late st Contact Info) Description 07/11/2023 Outside Orders [facility] Central Scheduling [address] [place] [address] Carolyn Granda, CYNTHIA [address] [facility] [address] [place] [address] Cognitive changes (Primary Dx) Social History Tobacco Use Types Packs/Day Years Used Date Smoking Tobacco: Never Assessed Comments Unknown Sex and Gender Information Value Date Recorded Sex Assigned at Not on file Legal Sex Female 6:16 PM CDT Gender Identity Not on file Sexual Orientation Not on file documented as of this encounter Plan of Treatment Not on file documented as of this encounter Visit Diagnoses Diagnosis Cognitive changes- Primary documented in this encounter
--- OUTSIDE RECORDS SUMMARY | 2024-10-14 08:23 | XMS_ITS | Clinical Summary ---
Author Organization [facility] Address [address] [place], [place] [id number] Care Team Providers Care Clicking Machine Operator Name Role Phone Unavailable Primary Care Provider Unavailabl e Social History Tobacco Use Types Packs/Day Years Used Date Smoking Tobacco: Never Assessed Comments Unknown Sex and Gender Information Value Date Recorded Sex Assigned at Not on file Legal Sex Female 6:16 PM CDT Gender Identity Not on file Sexual Orientation Not on file Plan of Treatment Not on file
--- OUTSIDE RECORDS SUMMARY | 2024-10-14 08:23 | XMS_ITS | Patient Health Record ---
Author Organization [facility] Address [address] [place] [address] Care Team Providers Care Hotel Clerk Name Role Phone Alejo Joseph Primary Care Provider Carolyn Granda Unavailable [phone] Migration, Provider Unavailable Unavailable Allergies Allergen (clinical drug ingredient) Drug/Non Drug Allergy documented on EMR Reaction Allergy Type Onset Date Status ADVAIR (uncoded) Unknown Allergy Act radha DURAGESIC (uncoded) Unknown Allergy Active diltiazem Cardizem Unknown Drug Allergy Active Results Component Value Reference Range Notes DRUG MONITORING, PANEL 8 WIT H CONFIRMATION, URINE (65712) Reviewed date:08/18/2024 03:47:30 PM Interpretation: Performing Lab:CB, [facility] [id number] [facility]te[facility], [facility] CenterVrdmDW[address] [place] Whitt Notes/Report: NON-FASTING; NON-FASTING; NON-FASTING NON-FASTING; NON-FASTING; NON-FASTING Alcohol Metabolites NEGATIVE <500 ng/mL Amphetamines NEGATIVE <500 ng/mL Benzodiazepines NEGATIVE <100 ng/mL Buprenorphine NEGATIVE <5 ng/mL Cocaine Metabolite NEGATIVE <150 ng/mL 6 Acetylmorphine NEGATIVE <10 ng/mL Marijuana Metabolite NEGATIVE <20 ng/mL MDMA NEGATIVE <500 ng/mL Opiates NEGATIVE <100 ng/mL Oxycodone NEGATIVE <100 ng/mL Creatinine 90.0 > or = 20.0 mg/dL pH 7.0 4.5-9.0 Oxidant NEGATIVE <200 mcg/mL Notes and Comments This drug testing is for medical treatment only. Analysis was performed as non-forensic testing and these results should be used only by healthcare providers to render diagnosis or treatment, or to monitor progress of medical conditions. LDT Notes: Confirmation tests were developed and their analytical performance characteristics have been determined by [facility]. It has not been cleared or approved by the FDA. This assay has been validated pursuant to the CLIA regulations and is used for clinical purposes. Healthcare Providers needing Interpretation assistance, please contact us at [phone] ( ) M-F, 8am to 10pm [facility] BASIC METABOLIC PANEL (93524 ) Reviewed date:08/20/2024 11:27:19 AM Interpretation: Performing Lab:DANIE [facility] [id number] [email or web address], CellerixKtitTV[address] [place] Whitt Notes/Report: NON-FASTING; NON-FASTING; NON-FASTING GLUCOSE 103 65-99 mg/dL Fasting reference interval For someone without known diabetes, a glucose value between 100 and 125 mg/dL is consistent with prediabetes and should be confirmed with a follow-up test. UREA NITROGEN (BUN) 10 7-25 mg/dL CREATININE 0.96 0.60-1.00 mg/dL EGFR 63 > OR = 60 mL/min/1.73m2 BUN/CREATININE RATIO SEE NOTE: 6-22 (calc) Not Reported: BUN and Creatinine are within reference range. SODIUM 135 135-146 mmol/L POTASSIUM 3.9 3.5-5.3 mmol/L CHLORIDE 100 98-110 mmol/L CARBON DIOXIDE 27 20-32 mmol/L CALCIUM 10.3 8.6-10.4 mg/dL BASIC METABOLIC PANEL (88950 ) Reviewed date:01/02/2024 02:59:27 PM Interpretation: Performing Lab:DANIE [facility] [id number] [employer] [email or web address], CellerixNknjPB[address] [place] Whitt Notes/Report: NON-FASTING; NON-FASTING; NON-FASTING GLUCOSE 89 65-99 mg/dL Fasting reference interval UREA NITROGEN (BUN) 18 7-25 mg/dL CREATININE 1.55 0.60-1.00 mg/dL EGFR 36 > OR = 60 mL/min/1.73m2 BUN/CREATININE RATIO 12 6-22 (calc) SODIUM 139 135-146 mmol/L POTASSIUM 4.9 3.5-5.3 mmol/L CHLORIDE 105 98-110 mmol/L CARBON DIOXIDE 25 20-32 mmol/L CALCIUM 10.5 8.6-10.4 mg/dL CBC (INCLUDES DIFF/PLT) (639 9) Reviewed date:01/02/2024 02:59:43 PM Interpretation: Performing Lab:DANIE [facility] [email or web address], [facility] CenterCgczHZ[address] [place] Whitt Notes/Report: NON-FASTING; NON-FASTING; NON-FASTING WHITE BLOOD CELL COUNT 7.5 3.8-10.8 Thousand/ uL RED BLOOD CELL COUNT 4.18 3.80-5.10 Million/uL HEMOGLOBIN 13.2 11.7-15.5 g/dL HEMATOCRIT 41.0 35.0-45.0 % MCV 98.1 80.0-100.0 fL MCH 31.6 27.0-33.0 pg MCHC 32.2 32.0-36.0 g/dL RDW 12.6 11.0-15.0 % PLATELET COUNT 317 140-400 Thousand/uL MPV 9.6 7.5-12.5 fL ABSOLUTE NEUTROPHILS 3315 5762-2730 cells/uL ABSOLUTE LYMPHOCYTES 3105 850-3900 cells/uL ABSOLUTE MONOCYTES 473 200-950 cells/uL ABSOLUTE EOSINOPHILS 570 15-500 cells/uL ABSOLUTE BASOPHILS 38 0-200 cells/uL NEUTROPHILS 44.2 LYMPHOCYTES 41.4 MONOCYTES 6.3 EOSINOPHILS 7.6 BASOPHILS 0.5 CBC (INCLUDES DIFF/PLT) (639 9) Reviewed date:08/20/2024 11:27:19 AM Interpretation: Performing Lab:DANIE [facility] [employer], [facility] CenterCrmvWM[address] [place] Whitt Notes/Report: NON-FASTING; NON-FASTING; NON-FASTING WHITE BLOOD CELL COUNT 9.5 3.8-10.8 Thousand/ uL RED BLOOD CELL COUNT 4.44 3.80-5.10 Million/uL HEMOGLOBIN 14.3 11.7-15.5 g/dL HEMATOCRIT 43.8 35.0-45.0 % MCV 98.6 80.0-100.0 fL MCH 32.2 27.0-33.0 pg MCHC 32.6 32.0-36.0 g/dL For adults, a slight decrease in the calculated MCHC value (in the range of 30 to 32 g/dL) is most likely not clinically significant; however, it should be interpreted with caution in correlation with other red cell parameters and the patient's clinical condition. RDW 13.0 11.0-15.0 % PLATELET COUNT 344 140-400 Thousand/uL MPV 9.0 7.5-12.5 fL ABSOLUTE NEUTROPHILS 4560 3535-0831 cells/uL ABSOLUTE LYMPHOCYTES 4190 850-3900 cells/uL ABSOLUTE MONOCYTES 608 200-950 cells/uL ABSOLUTE EOSINOPHILS 105 15-500 cells/uL ABSOLUTE BASOPHILS 38 0-200 cells/uL NEUTROPHILS 48 LYMPHOCYTES 44.1 MONOCYTES 6.4 EOSINOPHILS 1.1 BASOPHILS 0.4 HEMOGLOBIN A1c (496) Reviewed date:08/20/2024 11:27:19 AM Interpretation: Performing Lab:DANIE [facility] [id number] [facility]ArtSaint [facility], [facility] CenterKxzkRO[address] [place] Whitt Notes/Report: NON-FASTING; NON-FASTING; NON-FASTING HEMOGLOBIN A1c 7.0 <5.7 % For someone without known diabetes, a hemoglobin A1c value of 6.5% or greater indicates that they may have diabetes and this should be confirmed with a follow-up test. For someone with known diabetes, a value <7% indicates that their diabetes is well controlled and a value greater than or equal to 7% indicates suboptimal control. A1c targets should be individualized based on duration of diabetes, age, comorbid conditions, and other considerations. Currently, no consensus exists regarding use of hemoglobin A1c for diagnosis of diabetes for children. HEMOGLOBIN A1c (496) Reviewed date:01/02/2024 02:59:37 PM Interpretation: Performing Lab:DANIE [facility] [id number] [facility]ArtSaint [facility], [facility] CenterPmapLK[address] [place] Whitt Notes/Report: NON-FASTING; NON-FASTING; NON-FASTING HEMOGLOBIN A1c 6.3 <5.7 % of total Hgb For someone with known diabetes, a value <7% indicates that their diabetes is well controlled. A1c targets should be individualized based on duration of diabetes, age, comorbid conditions, and other considerations. This assay result is consistent with an increased risk of diabetes. Currently, no consensus exists regarding use of hemoglobin A1c for diagnosis of diabetes for children. This test was performed on the Alina jean marie c503 platform. Effective 06/25/23, a change in test platforms from the Villafuerte Fur Examiner to the Alina jean marie c503 may have shifted HbA1c results compared to historical results. Based on laboratory validation testing conducted at [facility], the Alina platform relative to the Villafuerte platform had an average increase in HbA1c value of < or = 0.3%. This difference is within accepted variability established by the National Glycohemoglobin Standardization Program. Note that not all individuals will have had a shift in their results and direct comparisons between historical and current results for For someone without known diabetes, a hemoglobin A1c value between 5.7% and 6.4% is consistent with prediabetes and should be confirmed with a follow-up test. testing conducted on different platforms is not recommended. Microalbumin (In-House) Reviewed date:05/20/2024 03:45:52 PM Interpretation:Abnormal Performing Lab: Notes/Report: Abnormal ALB 80mg/L CRE 200mg/dL A:C 30-300mg/g Ultrasound : Renal, bilatera l Reviewed date:01/19/2024 12:10:31 PM Interpretation: Performing Lab: Notes/Report: Medications Medication SIG (Take, Route, Frequency, Duration) Notes Start Date End Date Status Sd Aerosphere 160-9-4.8 MCG/ACT INHALE TWO PUFFS BY MOUTH TWICE DAILY; Duration: 30 Active Crestor 10 MG 1 tab(s) orally once a day; Duration: 90 days Active hydroCHLOROthiazide 12.5 MG 1 tablet in the morning Orally Once a day; Duration: 30 days 09/27/2024 Active Albuterol Sulfate (2.5 MG/3ML) 0.083% 3 mL by nebulizer every 6 hours as needed for shortness of breath; Duration: 30 days DX: J44.9 Active Losartan Potassium 100 MG 1 tablet Orall y Once a day; Duration: 90 days 09/06/2024 Active Jardiance 10 MG 1 tablet Orally Once a day; Duration: 30 days 08/20/2024 Active Escitalopram Oxalate 20 mg TAKE ONE TABLET BY MOUTH EVERY DAY; Duration: 90 Active Omeprazole 40 MG 1 cap(s) orally once a day; Duration: 90 days Active traMADol HCl 50 mg TAKE ONE TABLET BY MOUTH THREE TIMES DAILY MAY CAUSE DROWSINESS; Duration: 30 09/12/2024 Active NEBULIZER KIT -; Duration: 30 DAY(S) *Please review for potential replacement for e-prescription and drug interaction check* 05/15/2018 Active Propranolol HCl 10 mg TAKE ONE TABLET BY MOUTH TWICE DAILY FOR TREMOR; Duration: 30 Active Albuterol Sulfate HFA 108 (90 Base) MCG/ACT 2 puffs Inhalation every 4 hrs; Duration: 30 days As needed Active Gabapentin 300 MG 1 capsule Orally 3 times a day; Duration: 30 days 09/27/2024 Active Immunizations Vaccine Route Administration Date Status Comme nts Influenza Pediatric 6mo - 35 mo Unknown 01/17/2016 Administered Influenza (Fluzone)--Medicar e only IM Intramuscular 01/26/2014 Administered Influenza-Fluzone 3+years (NON-MEDICARE) Unknown 01/17/2016 Administered SHINGRIX IM Intramuscular 08/21/2023 Administered Zostavax (Shingles) SC Subcutaneous 02/23/2014 Administered Given at [facility] Lot # [id number] Adacel (Tdap) IM Intramuscular 11/10/2013 Administered Fluzone High Dose IM Intramuscular 02/03/2024 Administered Fluzone High Dose IM Intramuscular 01/03/2020 Administered Fluzone High Dose IM Intramuscular 01/07/2019 Administered Influenza (Fluzone)--Medicar e only IM Intramuscular 02/28/2017 Administered Influenza (Fluzone)--Medicar e only IM Intramuscular 02/09/2015 Administered Fluzone High Dose IM Intramuscular 01/18/2021 Administered Prevnar PCV-13 (Pneumococcal conjugate 13) IM Intramuscular 08/16/2016 Administered Pneumovax-23 (pneumococccal vaccine polyvalent)2 years or older IM Intramuscular 01/26/2014 Administered Pneumovax 23 IM Intramuscular 04/08/2019 Administered Social History Tobacco Use: Social History Observation Description Date Details (start date - stop date) Current Smoker NA - NA Smoking: Question Answer Notes Are you a: current smoker How often do you smoke cigarettes? every day How many cigarettes a day do you smoke? 21-30 Problems Problem Type SNOMED Code ICD Code Onset Dates Problem Status W/U Status Risk Notes Problem Malignant tumor of urinary bladder (510357827) Malignant neoplasm of bladder, unspecified (C67.9) Active confirmed Problem Diabetic renal disease (325472931) Type 2 diabetes mellitus with diabetic chronic kidney disease (E11.22) Active confirmed Problem Vitamin B deficiency (49005092) Deficiency of other specified B group vitamins (E53.8) Active confirmed Problem Chronic pain (87810449) Other chronic pain (G89.29) Active confirmed Problem Chronic pain syndrome (096748437) Chronic pain syndrome (G89.4) Active confirmed Problem Gastro-esophageal reflux disease without esophagitis (002646175) Gastro-esophage al reflux disease without esophagitis (K21.9) Active confirmed Problem Hyperlipidaemia (24732442) HLD (hyperlipidemia ) (E78.5) Active confirmed Problem Paresthesia (13224815) Paresthesia (R20.2) Active confirmed Problem Vitamin D deficiency (39683370) Vitamin D deficiency (E55.9) Active confirmed Problem Tobacco use (504447895) Tobacco use disorder (Z72.0) Active confirmed Problem Essential hypertension (29450170) Essential hypertension (I10) Active confirmed Problem Acute exacerbation of chronic obstructive airways disease (593102787) COPD exacerbation (J44.1) Active confirmed Problem Osteopenia (071754320) Osteopenia (M85.80) Active confirmed Problem Chronic obstructive bronchitis (disorder) (777148404) COPD (chronic obstructive pulmonary disease) with chronic bronchitis (J44.9) Active confirmed Problem Idiopathic sleep related non-obstructive alveolar hypoventilation (399481414) Nocturnal hypoxia (G47.34) Active confirmed Problem Memory loss (72643183) Memory loss (R41.3) Active confirmed Problem Claudication (81630382) Claudication (I73.9) Active confirmed Problem Peripheral vascular disease (921322439) Peripheral vascular disease (I73.9) Active confirmed Problem Sciatica (40358745) Midline low back pain with sciatica, sciatica laterality unspecified (M54.40) Active confirmed Problem Arthropathy (589080347) Arthropathy, multiple sites (M12.9) Active confirmed Problem Nocturnal dyspnea (279745579) Nocturnal dyspnea (R06.00) Active confirmed Problem Degeneration of intervertebral disc (43779914) Multilevel degenerative disc disease (M53.9) Active confirmed Problem Anxiety (73620160) Situational anxiety (F41.8) Active confirmed Problem Transient cerebral ischemia (517503965) Transient cerebral ischemia (G45.9) Active confirmed Problem Prediabetes (636467428) Pre-diabetes (R73.09) Active confirmed Problem Type II diabetes mellitus without complication (328059986) Type 2 diabetes mellitus without complication, without long-term current use of insulin (E11.9) Active confirmed Problem Menopausal symptom (29013627) Hot flashes due to menopause (N95.1) Active confirmed Problem Tobacco use (957334658) Tobacco use disorder (F17.200) Active confirmed Problem Prediabetes (841417130) Pre-diabetes (R73.03) Active confirmed Problem Personal history of tobacco use (Z87.891) Active confirmed Problem Abnormal gait (20840328) Abnormal gait (R26.9) Active confirmed Problem Normal body mass index (14023991) BMI 22.0-22.9, adult (Z68.22) Active confirmed Problem Normal body mass index (36257429) BMI 23.0-23.9, adult (Z68.23) Active confirmed Problem 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) Active confirmed Problem Altered thought processes (82418721) Cognitive changes (R41.89) Active confirmed Problem Tomography - chest abnormal (324584872) Abnormal CT scan, chest (R93.89) Active confirmed Problem Chronic kidney disease stage 3B (disorder) (280594297) Chronic kidney disease, stage 3b (N18.32) Active confirmed Problem Chronic kidney disease stage 3B (disorder) (929536771) Stage 3b chronic kidney disease (CKD) (N18.32) Active confirmed Vital Signs Heart Rate 80 /min 09/27/2024 Temperature 97.9 degrees Fahrenheit 09/27/2024 Oximetry 96 08/16/2024 O2 sat 96% on r oom air with sitting, 94% after ambulating for [address] Blood pressure diastolic 72 mm Hg 09/27/2024 Height 64.5 in 09/27/2024 Blood pressure systolic 184 mm Hg 09/27/2024 Weight 119.2 lbs 09/27/2024 BMI 20.14 kg/m2 09/27/2024 Encounters Encounter Location Date Provider Diagnosis [facility] [address] [place] [address] 07/24/2024 Provider Migration Tremor R25.1 and Essential hypertension I10 [facility] [address] [place] [address] 09/27/2024 Carolyn Granda Type 2 diabetes mellitus without complication, without long-term current use of insulin E11.9 ; Stage 3b chronic kidney disease (CKD) N18.32 ; Essential hypertension I10 ; Cognitive impairment R41.89 and Multilevel degenerative disc disease M53.9 [facility] [address] [facility] [address] [place] [address] 12/04/2023 Carolyn Granda Tremor R25.1 ; Peripheral vascular disease I73.9 ; Multilevel degenerative disc disease M53.9 ; HLD (hyperlipidemia) E78.5 ; Other chronic pain G89.29 ; Essential hypertension I10 ; COPD (chronic obstructive pulmonary disease) with chronic bronchitis J44.9 and Type 2 diabetes mellitus without complication, without long-term current use of insulin E11.9 [facility] [address] [place] [address] 01/01/2024 Carolyn Granda Tremor R25.1 ; COPD (chronic obstructive pulmonary disease) with chronic bronchitis J44.9 ; Essential hypertension I10 ; Type 2 diabetes mellitus without complication, without long-term current use of insulin E11.9 ; Tobacco use disorder F17.200 and Elevated serum creatinine R79.89 [facility] [address] [place] [address] 02/03/2024 Carolyn Granda Immunization(s) administered Z23 ; Tremor R25.1 and COPD (chronic obstructive pulmonary disease) with chronic bronchitis J44.9 [facility] [address] [place] [address] 05/20/2024 Carolyn Granda Essential hypertension I10 ; COPD (chronic obstructive pulmonary disease) with chronic bronchitis J44.9 ; Tobacco use disorder F17.200 ; Type 2 diabetes mellitus with diabetic chronic kidney disease E11.22 ; Chronic kidney disease, stage 3b N18.32 and Multilevel degenerative disc disease M53.9 [facility] [address] [facility] [address] [place] [address] 08/16/2024 Carolyn Granda Hiatal hernia K44.9 ; Tremor R25.1 ; Dyspnea on exertion R06.09 ; Type 2 diabetes mellitus without complication, without long-term current use of insulin E11.9 ; Stage 3b chronic kidney disease (CKD) N18.32 ; Multilevel degenerative disc disease M53.9 ; Therapeutic drug monitoring Z51.81 and vermin exterminator prescription opiate use Z79.891 [facility] [address] [place] [address] 09/06/2024 Carolyn Granda COPD exacerbation J44.1 ; Essential hypertension I10 and Tobacco use Z72.0 [facility] [address] [place] [address] 10/16/2023 Alejo Besson [facility] [address] [place] [address] 01/02/2024 Carolyn Granda Abnormal kidney function study R94.4 [facility] [address] [place] [address] 03/08/2024 Carolyn Kalee [facility] [address] [place] [address] 05/04/2024 Carolyn Kalee [facility] [address] [place] [address] 05/26/2024 Alejo Besson [facility] [address] [place] [address] 05/26/2024 Alejo Besson [facility] [address] [place] [address] 08/20/2024 Carolyn Kalee [facility] [address] [place] [address] 09/27/2024 Carolyn Granda Essential hypertension I10 Assessments Encounter Date Diagnosis (ICD Code) Assessment Notes Treatment Notes Treatment Clinical Notes Section Notes 12/04/2023 Tremor (ICD-10 - R25.1) trial of low dose propranolol, declines neurology referral for now 01/01/2024 Tremor (ICD-10 - R25.1) continue low dose propranolol as needed 01/01/2024 COPD (chronic obstructive pulmonary disease) with chronic bronchitis (ICD-10 - J44.9) encouraged to consider smoking cessation, Sd samples provided, rinse mouth afterwards 01/02/2024 Abnormal kidney function study (ICD-10 - R94.4) 02/03/2024 Immunization(s) administered (ICD-10 - Z23) 05/20/2024 Essential hypertension (ICD-10 - I10) elevated today, with proteinuria. add ARB 07/24/2024 Tremor (ICD-10 - R25.1) 07/24/2024 Essential hypertension (ICD-10 - I10) 08/16/2024 Tremor (ICD-10 - R25.1) she is now agreeable to neurology consultation for tremor, cognitive decline, gait changes 08/16/2024 Hiatal hernia (ICD-10 - K44.9) 09/06/2024 Essential hypertension (ICD-10 - I10) t 09/06/2024 COPD exacerbation (ICD-10 - J44.1) treated with zitrhomax only, rec addition of cefdinir. continue Breztri with nebulizer as needed. Strongly encouraged smoking cessation t 09/27/2024 Type 2 diabetes mellitus without complication, without long-term current use of insulin (ICD-10 - E11.9) 09/27/2024 Essential hypertension (ICD-10 - I10) 09/27/2024 Stage 3b chronic kidney disease (CKD) (ICD-10 - N18.32) 09/06/2024 Tobacco use (ICD-10 - Z72.0) t 05/20/2024 Tobacco use disorder (ICD-10 - F17.200) 08/16/2024 Dyspnea on exertion (ICD-10 - R06.09) 05/20/2024 COPD (chronic obstructive pulmonary disease) with chronic bronchitis (ICD-10 - J44.9) encouraged to consider smoking cessation, Breztri samples provided, rinse mouth afterwards and discussed that it is to be used 2 puffs BID 02/03/2024 Tremor (ICD-10 - R25.1) continue low dose propranolol as needed 01/01/2024 Essential hypertension (ICD-10 - I10) well controlled 12/04/2023 Peripheral vascular disease (ICD-10 - I73.9) encouraged smoking cessation, continue ASA 12/04/2023 Multilevel degenerative disc disease (ICD-10 - M53.9) continue low dose tramadol per Dr Joseph 02/03/2024 COPD (chronic obstructive pulmonary disease) with chronic bronchitis (ICD-10 - J44.9) smoking cessation again encouraged, Breztri samples provided, rinse mouth afterwards 01/01/2024 Type 2 diabetes mellitus without complication, without long-term current use of insulin (ICD-10 - E11.9) A1C at goal with most recent labs. encouraged annual eye exam. Cannot void during visit but needs urine micro ratio next visit. Continue ARB/Statin 05/20/2024 Type 2 diabetes mellitus with diabetic chronic kidney disease (ICD-10 - E11.22) stop metformin due to CKD, consider addition of SGLT2I but starting ARB first 08/16/2024 Type 2 diabetes mellitus without complication, without long-term current use of insulin (ICD-10 - E11.9) 09/27/2024 Essential hypertension (ICD-10 - I10) 09/27/2024 Cognitive impairment (ICD-10 - R41.89) 08/16/2024 Stage 3b chronic kidney disease (CKD) (ICD-10 - N18.32) 12/04/2023 HLD (hyperlipidemia) (ICD-10 - E78.5) tolerating crestor 05/20/2024 Chronic kidney disease, stage 3b (ICD-10 - N18.32) 01/01/2024 Tobacco use disorder (ICD-10 - F17.200) 01/01/2024 Elevated serum creatinine (ICD-10 - R79.89) repeat labs today as noted 12/04/2023 Other chronic pain (ICD-10 - G89.29) 08/16/2024 Multilevel degenerative disc disease (ICD-10 - M53.9) continue tramadol, DONATO on file. Attempted to obtain urine for UDS but amount voided was insufficient 05/20/2024 Multilevel degenerative disc disease (ICD-10 - M53.9) continue tramadol, DONATO on file. Attempted to obtain urine for UDS but amount voided was insufficient 09/27/2024 Multilevel degenerative disc disease (ICD-10 - M53.9) 08/16/2024 Therapeutic drug monitoring (ICD-10 - Z51.81) 12/04/2023 Essential hypertension (ICD-10 - I10) well controlled 12/04/2023 COPD (chronic obstructive pulmonary disease) with chronic bronchitis (ICD-10 - J44.9) encouraged to consider smoking cessation 12/04/2023 Type 2 diabetes mellitus without complication, without long-term current use of insulin (ICD-10 - E11.9) A1C at goal with most recent labs. encouraged annual eye exam. Cannot void during visit but needs urine micro ratio next visit. Continue ARB/Statin 08/16/2024 vermin exterminator prescription opiate use (ICD-10 - Z79.891) Plan Of Treatment Pending Test Test Name Order Date N-CBC 08/24/2007 X-Lipid Profile 08/24/2007 X-Lipid Profile 01/14/2007 N-FSH, LH 08/24/2007 Ultrasound : Carotids 12/14/2020 Ultrasound : Carotids 06/06/2008 N-Amylase 01/14/2007 Bone Density 01/29/2007 N-TSH (Thyroid Stimulating Hormone) 12/21 Colonoscopy 12/01/2009 [facility]EX[facility] Hip and Spine - Screening 5 N-CMP 01/14/2007 N-CMP 08/24/2007 Upper GI series 08/16/2024 Echocardiogram 09/27/2024 MRI : Head, With and Without Contrast MRI : Head, With and Without Contrast Mammogram : Bilateral 01/29/2007 CT Scan : Chest with Contrast 07/17/2020 H-LIPID PANEL 08/24/2010 H-LIPID PANEL 05/26/2009 H-LIPID PANEL 12/23/2008 C-BUN 05/28/2018 C-CREATININE 05/28/2018 C-CBC 01/07/2019 C-CBC 10/16/2020 C-CBC 04/03/2020 C-CBC 05/13/2014 C-CBC 05/16/2016 C-CMP 02/09/2015 C-CMP 05/16/2016 C-CMP 05/13/2014 C-CMP 03/02/2010 C-CMP 05/20/2013 C-CMP 04/03/2020 C-CMP 05/30/2017 C-CMP 08/28/2009 C-CMP 10/16/2020 C-CMP 01/07/2019 C-MICROALBUMIN 05/16/2016 C-LIPID PANEL 05/16/2016 C-LIPID PANEL 03/02/2010 C-LIPID PANEL 05/13/2014 C-LIPID PANEL 05/20/2013 C-LIPID PANEL 02/09/2015 C-LIPID PANEL 01/07/2019 C-LIPID PANEL 10/16/2020 C-LIPID PANEL 08/28/2009 C-LIPID PANEL 05/30/2017 C-LIPID PANEL 04/03/2020 C-TSH 12/01/2017 C-NATE 08/08/2015 C-VITAMIN B12 05/20/2013 C-VITAMIN D, 1,25-DIHYDROXY 02/19/2011 C-HGBA1C 10/16/2020 C-HGBA1C 04/03/2020 C-HGBA1C 01/07/2019 C-HGBA1C 05/20/2013 C-HGBA1C 05/13/2014 C-HGBA1C 05/16/2016 C-HGBA1C 02/09/2015 C-DRUG SCREEN 10 PANEL 05/16/2016 C-DRUG SCREEN 10 PANEL 08/11/2013 C-VITAMIN D, 25-HYDROXY 04/03/2020 C-VITAMIN D, 25-HYDROXY 01/07/2019 C-VITAMIN D, 25-HYDROXY 10/16/2020 C-VITAMIN D, 25-HYDROXY 05/16/2016 C-VITAMIN D, 25-HYDROXY 02/09/2015 C-VITAMIN D, 25-HYDROXY 05/13/2014 C-VITAMIN D, 25-HYDROXY 05/20/2013 E-WXCC-TEFNAZ CITRULLINATED PEPTIDE 07/20 C-DRUG SCREEN 12 PANEL 08/08/2015 C-DRUG SCREEN 12 PANEL 10/15/2018 M-Complete Blood Count Auto Diff 022 M-Complete Blood Count Auto Diff 021 M-Complete Blood Count Auto Diff 023 M-Complete Blood Count Auto Diff 022 M-Comprehensive Metabolic Panel 03/06/20 22 M-Comprehensive Metabolic Panel 08/02/19 23 M-Comprehensive Metabolic Panel 04/19/20 21 M-Comprehensive Metabolic Panel 01/11/20 22 M-BUN & Creatinine 07/17/2020 M-BUN & Creatinine 02/09/2021 M-Hemoglobin A1C 08/01/2022 M-Hemoglobin A1C 03/06/2022 M-Hemoglobin A1C 04/19/2021 M-Lipid Panel 03/06/2022 M-Lipid Panel 08/01/2022 M-Lipid Panel 04/19/2021 M-Lipid Panel 01/10/2022 M-Thyroid Panel 03/06/2022 M-Vitamin B12 03/06/2022 M-Vitamin B12 04/19/2021 M-Vitamin B12 08/01/2022 M-Vitamin D 25 Hydroxy 08/01/2022 M-Vitamin D 25 Hydroxy 04/19/2021 M-Vitamin D 25 Hydroxy 03/06/2022 M-Folate 03/06/2022 CT Scan : Chest, Lung Cancer Screening 0 04/25/2022 ARTERIAL RENAL DOPPLER 09/27/2024 CAROTID DUPLEX 09/27/2024 Next Appt Details Provider Name:Carolyn Fischer zohra, 10/18/2024 12:45:00 PM, [address] [facility], [address], [place], [address], Provider Name:Carolyn Fischer zohra, 11/15/2024 02:00:00 PM, [address] [facility], [address], [place], [address], Insurance Providers Payer Name Payer Address Payer Phone Subscriber Number Group Number Insured Name Patient Relationship to Insured Coverage Start Date Coverage End Date MEDICARE [place] [address] [place] [address] [id number] Sulma Almodovar Self - patient is the insured [facility] [address] [address] [place] [address] [id number] Sulma Almodovar Self - patient is the insured [employer] [address] [place] [address] [phone] ACL Sulma Almodovar Self - patient is the insured Medications Administered Medication Instructions Date of Administration Dosage Notes Triamcinolone Acetonide 40mg Injection 05/15/2018 1 mL Dexamethasone 4mg Injection 05/20/2024 1 mL Medical (General) History Medical History History ICD Code DDD hypercholestrolemia TIA gerd carotid artery stenosis, 20% right depression chronic arthritis pain edema urinary bladder cancer copd tobacco addiction abdominal hernia, ventral Osteopenia - DEXA in 2009 PVD Type 2 Diabetes, max A1C 6.6%, on metfor min Surgical History Surgery Date(Month/Year) Tubal 1979
--- OUTSIDE RECORDS SUMMARY | 2024-10-14 08:24 | XMS_ITS | Referral Summary ---
Author Organization [employer] Address [address] [place], [place] [id number] Care Team Providers Care Ocean Freight Manager Name Role Phone Unavailable Primary Care Provider [...]
== END 2024-10-14 23:59 | disposition home or self-care (01) ==
LOC: RT 08:20
PROVIDERS: PCP Nurse Practitioner Family; Visit Provider Nurse Practitioner Family
DX: I63.233 Cerebral infarction due to unspecified occlusion or stenosis of bilateral carotid arteries (principal); I34.0 Nonrheumatic mitral (valve) insufficiency; G45.8 Other transient cerebral ischemic attacks and related syndromes; I10 Essential (primary) hypertension; E78.5 Hyperlipidemia, unspecified; F17.200 Nicotine dependence, unspecified, uncomplicated; R09.89 Other specified symptoms and signs involving the circulatory and respiratory systems
CPT/HCPCS: 93306; 93880; 93976